=== PATIENT | female | born 1970 | race Caucasian/White ===

== ENCOUNTER 2021-08-22 10:31 | Emergency (ER) | payer OTHER, SELFPAY ==
[2021-08-22 10:42] VITALS: BP 198/97; PULSE 81; RESP 18; TEMP 36.7; O2SAT 97; BMI 42.0
--- NOTE | 2021-08-22 17:16 | ED_ITS ---
HPI - Ear Problem General Chief complaint: Ear Problems Stated complaint: r ear pain and swelling Time Seen by Provider: 08/22/21 11:54 Source: patient Mode of arrival: ambulatory Limitations: no limitations History of Present Illness HPI Narrative: 51-year-old female presents with right ear pain for the last 2 days. No fevers, no sore throat, no loss in hearing, no swimming, no other upper respiratory symptoms. MD Complaint: ear pain Location: right ear Duration: constant Severity: moderate Relieving factors: nothing Exacerbating factors: nothing Discharge from ear: no Treatment prior to arrival: none Related Data Previous Rx's Medication Instructions Recorded amoxicillin 875 mg-potassium 1 tab PO BID 10 Days #20 tab 08/22/21 clavulanate 125 mg tablet ofloxacin 0.3 % ear drops 10 drp OTIC (EARS) DAILY 7 Days 08/22/21 #70 ml Allergies Allergy/AdvReac Type Severity Reaction Status Date / Time No Known Allergies Allergy Mild N/A Verified 02/29/20 07:23 Review of Systems Constitutional: Constitutional: Denies body ache(s), Denies chills, Denies fatigue, Denies fever(s), Denies headache(s), Denies malaise and Denies weakness Eyes: Eyes: Denies diplopia ENT: Denies vertigo, Denies dizziness, Reports otalgia, Denies headache(s), Denies mouth pain, Denies post nasal drip, Denies sinus pain, Denies sinus pressure, Denies sore throat and Denies throat swelling Cardiovascular: Cardiovascular: Denies chest pain, Denies syncope, Denies leg edema, Denies lightheadedness, Denies Loss of Consciousness, Denies palpitations and Denies dyspnea Respiratory: Respiratory: Denies chest congestion, Denies cough and Denies dyspnea Gastrointestinal: Gastrointestinal: Denies abdominal pain, Denies hematochezia, Denies constipation, Denies diarrhea and Denies vomiting Musculoskeletal: Musculoskeletal: Reports no additional musculoskeletal complaints Neurologic: Denies confusion, Denies vertigo, Denies dizziness, Denies syncope, Denies headache(s) and Denies weakness Psychiatric: Psychiatric: Denies anxiety, Denies confusion and Denies depression Endocrine: Endocrine: Denies fatigue and Denies palpitations Allergic/Immunologic: Allergic/Immunologic: Denies throat swelling PMFSH Past Medical History Surgical History History of cholecystectomy History of removal of cyst History of tubal ligation Family History Family History (Updated 02/29/20 @ 07:27 by BARTOLOME Garrett) Father Emphysema lung Diabetes Myocardial infarction Mother Hypertension TIA (transient ischemic attack) Maternal Uncle Colon cancer Bladder cancer Sister Medley syndrome Endometriosis Abdominal malignancy Brother Leukemia Social History Social History Advance Directives: Yes Advance Directives Information Provided: Yes Advance Directives on File: No Patient : No Physical Exam Vital Signs: Vital Signs: Last Vital Signs Temp 98.1 F 08/22/21 10:42 Pulse 81 08/22/21 10:42 Resp 18 08/22/21 10:42 BP 198/97 H 08/22/21 10:42 Pulse Ox 97 08/22/21 10:42 BMI result Body Mass Index 42.0 Const: General: No confusion Nutritional Appearance: well nourished Orientation/consciousness: No confusion Limitations: no limitations HEENT: Head: Yes normal to inspection, Yes normocephalic and Yes atraumatic Ears: hearing grossly normal bilaterally, external ears normal, Abnormal EAC present erythema on the right and EAC tenderness on the right and TM abnormal bulging on the right, erythematous on the right and with loss of landmarks on the right General nose exam: Normal external nose present Face and sinus: Yes normal facial exam and Yes sinuses nontender Mouth: Normal oral and palatal mucosa present Throat: Yes posterior oropharynx normal Eyes: Conjunctivae: conjunctivae normal Pupils: Equal, round and reactive pupils present EOM: EOMs intact bilaterally Neck: Neck: Yes full ROM, Yes no lymphadenopathy and Yes supple Resp: Effort & Inspection: normal respiratory effort and able to speak in complete sentences Auscultation: clear to auscultation bilaterally, no crackles, no rales, no rhonchi and no wheezes Cardio: Rate: regular rate Rhythm: regular rhythm Heart sounds: S1 sophia l heart sound present and S2 normal heart sound present Skin: General skin exam: no rashes or lesions noted Neuro: General: No confusion Cranial nerves: Yes Equal, round and reactive pupils present Extrem: General: Yes normal to inspection and Yes full ROM Psych: Appearance: grossly normal Affect: normal affect Attitude: cooperative Thought process: Normal thought process present Course Course Course Narrative: 51-year-old female with 2 days of right ear pain. On exam, patient is stable vitals, has an erythematous X dura no auditory canal on the right side that is painful, has a right bulging and erythematous tympanic membrane Will treat with Augmentin and ofloxacin drops, counseled ibuprofen for pain, follow-up if worsening symptoms. All the patient's questions were answered. Discharge Plan Discharge Clinical Impression: Otitis media Patient Disposition: Home, Self-Care Instructions: Ear Infection (ED) Additional Instructions: Please use ear drops and oral antibiotics as prescribed. If you have fevers, worsening pain, trouble hearing, few cannot open your mouth, or if you have any other new or concerning symptoms, please return to emergency room Prescriptions: New amoxicillin-pot clavulanate 875-125 mg tablet 1 tab PO BID 10 Days Qty: 20 0RF ofloxacin 0.3 % drops 10 drp otic (ears) DAILY 7 Days Qty: 70 0RF Interventions: ED Discharge Assessment Last Done: 08/22/21 12:09 Discharge Date/Time: 08/22/21 12:10
== END 2021-08-22 12:10 | disposition home or self-care (01) ==
PROVIDERS: Emergency Provider Emergency Medicine; PCP Internal Medicine
DX: H66.91 Otitis media, unspecified, right ear (principal)
CPT/HCPCS: 99282; 99283

== ENCOUNTER 2022-12-26 07:47 | Emergency (ER) | payer OTHER, SELFPAY ==
--- NOTE | ~2022-12-26 | XR_ITS ---
EXAMINATION: XR HIP, RIGHT CLINICAL INFORMATION: Pain COMPARISON: None available. TECHNIQUE: Two views of the right hip. FINDINGS: No acute visible fracture or dislocation. Mild degenerative changes of the bilateral femoral acetabular joint. Subchondral cystic focus involving the right femoral head/neck nonspecific though may reflect arthritic etiology. Enthesopathy along the left greater trochanter. Degenerative changes of the lumbosacral spine. Bowel gas is unremarkable. Pelvic phleboliths are noted. XR/XR hip RT w PEL1V IMPRESSION: 1. No acute visible fracture or dislocation. 2. Mild degenerative changes of the bilateral femoral acetabular joint. 3. Subchondral cystic focus involving the right femoral head/neck nonspecific though may reflect arthritic etiology. 4. Enthesopathy along the left greater trochanter.
[2022-12-26 07:52] VITALS: BP 161/92; PULSE 87; RESP 18; TEMP 36.7; BMI 42.1
--- NOTE | 2022-12-26 08:12 | PC.NURSE ---
Patient reports she thinks she has a uti, denies pain with urination or blood in urine. States has sensation of having to void but is unable to. Reports 8/10 right thigh pain that started x1 month ago. Denies sob, chest pain, or headache.
--- NOTE | 2022-12-26 08:43 | ED.FEMALEGU ---
HPI - Female Genitourinary General Chief complaint: General Medical Stated complaint: R upper thigh pain Time Seen by Provider: 12/26/22 08:23 Source: patient Mode of arrival: ambulatory Limitations: no limitations History of Present Illness HPI Narrative: 52 yo female with hx of HTN, HLD here with c/o R thigh pain x 1 month no associated systemic symptoms hurts to get up and walk in AM and go up stairs. She has not seen her doctor for this. She also c/o dysuria and pain x 3 days but no fevers, vomiting. No hx of renal colic in the past. MD elicited complaint: dysuria and UTI Onset (ago): day(s) (2) Location of symptoms: suprapubic Severity: mild Female Urogenital Radiation: Non-Radiating Quality of pain: burning Consistency: intermittent Vaginal discharge: none Vaginal bleeding: none Urinary symptoms: Dysuria, Urgency and Frequency Exacerbating factors: urination Relieving factors: none Associated symptoms: denies other symptoms Treatment prior to arrival: none Related Data Previous Rx's Medication Instructions Recorded azithromycin 250 mg tablet See Rx Instructions PO .COMPLEX #6 04/29/22 tabs nitrofurantoin 100 mg PO BID 7 days #13 caps 12/26/22 monohydrate/macrocrystals 100 mg capsule (Macrobid) Allergies Allergy/AdvReac Type Severity Reaction Status Date / Time No Known Allergies Allergy Mild N/A Verified 04/29/22 16:30 Review of Systems Review of Systems: Constitutional : No Weight loss, No Fever, No Chills, ENT/Mouth : No Hearing loss, No Ear Pain, No Nasal Congestion, No Sinus Pain, No Hoarseness, No sore throat, No Rhinorrhea, No Swallowing Difficulty Cardiovascular : No Chest Pain, No SOB Respiratory : No Cough, No Dyspnea Gastrointestinal : No Nausea, No Vomiting, No Diarrhea, No abdominal Pain, No Hematochezia, No Melena Genitourinary : pos Dysuria, pos Urinary Frequency, No Hematuria, No Urinary Incontinence, Musculoskeletal : no back pain, pos hip pain Skin : No Skin Lesions, No rash Neuro : No Weakness, No Numbness, No Paresthesias, no loss of bowel or bladder incontinence, no saddle anesthesia PMFSH Past Medical History Attestation statement: The following information was validated with the patient. Source: old records reviewed Medical History ASCUS with positive high risk HPV cervical Benign essential hypertension Hidradenitis Mixed hyperlipidemia Obesity (BMI 30-39.9) Surgical History History of cholecystectomy History of removal of cyst (~2014) History of tubal ligation (~1994) Family History Family History Father Emphysema lung Diabetes Myocardial infarction Mother Hypertension TIA (transient ischemic attack) Maternal Uncle Colon cancer Bladder cancer Sister Medley syndrome Endometriosis Abdominal malignancy Brother Leukemia Social History Social History Housing: Apartment Alcohol intake: never Patient Tobacco Use Status: Current everyday Tobacco user Cigarette Packs Per Day: 1 Smoked in Last 30 Days: Yes Second Hand Smoke Exposure: Yes Use of substances other than those prescribed or required for medical reasons: No Advance Directives: No Advance Directives Information Provided: Yes service: No Current occupational status: employed Cognitive needs: No Hearing needs: No Vision needs: No Physical Exam Vital Signs: Vital Signs: Last Vital Signs Temp 98.1 F 12/26/22 07:52 Pulse 87 12/26/22 07:52 Resp 18 12/26/22 07:52 BP 161/92 H 12/26/22 07:52 O2 Del Method Room Air 12/26/22 07:52 BMI result Body Mass Index 42.1 Appearance: Alert. Oriented X3. No acute distress. Eyes: Pupils equal, round and reactive to light. ENT: Pharynx normal. Neck: Normal inspection. Neck supple. CVS: Normal heart rate and rhythm. Pulses normal. Respiratory: No respiratory distress. Breath sounds normal. Abdomen: Soft and nontender. Skin: Skin warm and dry. Normal skin color. Normal skin turgor. Extremities: No lower extremity edema. R upper thigh mild ttp near hip insertion of quads laterally no mass felt - distal NV intact Neuro: Oriented X 3. No motor deficit. No sensory deficit. Medications Administered Discontinued Medications Generic Name Dose Route Start Last Admin Trade Name Freq PRN Reason Stop Dose Admin Nitrofurantoin Macrocrystals 100 mg 12/26/22 09:02 12/26/22 09:08 Nitrofurantoin Monohyd/M-Cryst 100 Mg Capsule PO 12/26/22 09:03 100 mg ONCE ONE Administration Medical Decision Making Medical Decision Making [facility] Narrative: 52 yo female with hx of HTN, HLD here with c/o dysuria and UTI symptoms without concern for STI fevers vomiting or flank pain to suggest stone doubt renal colic or pyelonephritis. at this time will need UA. She also c/o chronic R hip pain without numbness, weakness has normal pulses and no red flag symptoms - possible strain vs arthritis will obtain xray and refer to orthopedics Differential Diagnosis Differential Diagnoses: The differential diagnosis associated with the presentation includes UTI, strain, sprain, arthritis Admission/Observation Consideration of admission/observation: Escalation of care including admission/observation considered not toxic tolerating PO can be managed as outpatient Lab Data [facility] Lab Attestation statement: I reviewed the patient's lab results. Labs: Lab Results 12/26/22 Range/Units 08:45 Urine Color Yellow Urine Appearance Clear Urine pH 6.0 (5.0-9.0) Ur Specific [place] 1.020 (1.005-1.025) Urine Protein Negative (Neg-Trace) mg/dL Urine Glucose (UA) Negative (Negative) mg/dL Urine Ketones Negative (Negative) mg/dL Urine Blood Small (1+) H (Negative) Urine Nitrite Negative (Negative) Ur Leukocyte Esterase Moderate (2+) H (Negative) Urine RBC 6-10 H (0-2) /HPF Urine WBC >50 H (0-5) /HPF Ur Squamous Epith Cells 3-5 (0-2) /HPF Urine Bacteria 3+ (None Seen) Hyaline Casts 0-2 (0-2) /LPF Independent Interpretation I performed an independent interpretation of an: Plain X-Ray (no fracture) Radiology Impression Discussion of test interpretation with radiology: I have reviewed the radiologist's reading. External Record Review External record reviewed: Office record Prescription Management I considered prescription management with: Antibiotic Discharge Plan Discharge Clinical Impression: Acute UTI Acute hip pain Qualifiers: Laterality: right Qualified Code(s): M25.551 - Pain in right hip Patient Disposition: Home, Self-Care Instructions: Urinary Tract Infection in Women (ED), Arthralgia (ED) Additional Instructions: return for worsening pain, vomiting, fevers or no improvement. for hip please talk to your primary care doctor you may need physical therapy or referral to orthopedics. can take tylenol or motrin as needed for pain FINDINGS: No acute visible fracture or dislocation. Mild degenerative changes of the bilateral femoral acetabular joint. Subchondral cystic focus involving the right femoral head/neck nonspecific though may reflect arthritic etiology. Enthesopathy along the left greater trochanter. Degenerative changes of the lumbosacral spine. Bowel gas is unremarkable. Pelvic phleboliths are noted. XR/XR hip RT w PEL1V IMPRESSION: 1.? No acute visible fracture or dislocation. 2.? Mild degenerative changes of the bilateral femoral acetabular joint. 3.? Subchondral cystic focus involving the right femoral head/neck nonspecific though may reflect arthritic etiology. 4.? Enthesopathy along the left greater trochanter. Prescriptions: New nitrofurantoin monohyd/m-cryst [Macrobid] 100 mg capsule 100 mg PO BID 7 Days Qty: 13 0RF Rx Instructions: must administer with a meal/food No Action azithromycin 250 mg tablet See Rx Instructions PO .COMPLEX Qty: 6 0RF Rx Instructions: take 500 mg today (day 1), then 250 mg for 4 days (days 2-5) PO Referrals: Brittaney Gomez PA-C [[facility]] - (orthopedics can call for appointment )
[2022-12-26 08:51] LABS: Appearance Urine Clear; Color Urine Yellow; Glucose Urine UA Negative (Negative); Leukocyte Esterase Urine Moderate (2+) (Negative); Nitrite Urine Negative (Negative); UMIC TRIGGER UACC YES; Urine Blood Small (1+) (Negative); Urine Ketones Negative (Negative); Urine Protein Negative (Neg-Trace)
[2022-12-26 08:54] LABS: Bacteria Urine 3+ (None Seen); Hyaline Casts Urine 0-2 /LPF (0-2); UACC Culture Trigger YES; WBC Urine >50 /HPF (0-5)
[2022-12-26] MEDS: Nitrofurantoin Monohyd/M-Cryst 100 MG CAPSULE PO (09:08)
--- NOTE | 2022-12-26 09:23 | PC.NURSE ---
Discharge plan reviewed with patient who verbalized understanding
== END 2022-12-26 09:27 | disposition home or self-care (01) ==
PROVIDERS: Emergency Provider Emergency Medicine; PCP Internal Medicine
DX: N39.0 Urinary tract infection, site not specified (principal); M25.551 Pain in right hip; R30.0 Dysuria; R35.0 Frequency of micturition; F17.210 Nicotine dependence, cigarettes, uncomplicated; Z71.6 Tobacco abuse counseling; Z79.899 Other long term (current) drug therapy
CPT/HCPCS: 73502; 81001; 87086; 99283; 99284

== ENCOUNTER 2023-02-18 09:30 | Outpatient (REF) | payer OTHER, SELFPAY ==
[2023-02-18 10:01] LABS: MANUAL DIFF FLAG NO
[2023-02-18 10:16] LABS: Basophils Percent Auto 0.5 % (0-2); Eosinophils Absolute Auto 0.2 X10*3/uL (0.0-0.4); Eosinophils Percent Auto 2.1 % (0-4); Hematocrit 42.9 % (37.0-47.0); Hemoglobin 13.9 g/dl (12.0-16.0); Imm Gran Abs Auto 0.06 X10*3/uL (0.00-0.03); Imm Gran Pct Auto 0.7 % (0.0-0.4); Lymphocytes Absolute Auto 2.3 X10*3/uL (1.2-4.9); Lymphocytes Percent Auto 27.2 % (20-40); Mean Corpuscular HGB Conc 32.4 g/dl (31.0-35.0); Mean Corpuscular Hemoglobin 28.4 pg (27.0-33.0); Mean Corpuscular Volume 87.7 fL (80.0-98.0); Mean Platelet Volume 9.6 fL (9.4-12.3); Monocytes Absolute Auto 0.6 X10*3/uL (0.1-1.2); Monocytes Percent Auto 7.2 % (2-11); Neutrophils Absolute Auto 5.3 x10*3/uL (2.0-8.3); Neutrophils Percent Auto 62.3 % (45-73); Platelet Count 323 X10*3/uL (160-400); Red Blood Count 4.89 X10*6/uL (4.20-5.50); Red Cell Distribution Width 13.2 % (11.0-16.0); White Blood Count 8.5 X10*3/uL (4.8-10.8)
[2023-02-18 10:56] LABS: Alanine Aminotransferase 14 U/L (0-31); Alkaline Phosphatase 74 U/L (39-117); Anion Gap 13 (12-20); Aspartate Amino Transferase 17 U/L (5-31); Bilirubin Total 0.3 mg/dL (0.0-1.0); Blood Urea Nitrogen 13 mg/dL (9-16); Calcium 9.8 mg/dL (8.4-10.2); Carbon Dioxide 26 mmol/L (22-29); Chloride 103 mmol/L (96-108); Cholesterol 314 mg/dL (<200); Estimated Glomerular Filt Rate > 60; Glucose Fasting 98 mg/dL (60-99); HDL Cholesterol 41 mg/dL (>40); LDL Cholesterol Calculated 201 mg/dL (<100); Potassium 4.2 mmol/L (3.3-5.1); Sodium 138 mmol/L (135-145); Total Protein 7.9 g/dL (6.5-8.0); Triglycerides 361 mg/dL (<150)
[2023-02-18 11:13] LABS: TSH reflex Free T4 4.29 uIU/mL (0.32-4.0)
[2023-02-18 11:15] LABS: Appearance Urine Cloudy; Color Urine Yellow; Glucose Urine UA Negative (Negative); Leukocyte Esterase Urine Trace (Negative); Nitrite Urine Negative (Negative); PH 5.5 (5.0-9.0); UMIC TRIGGER UACC YES; Urine Blood Small (1+) (Negative); Urine Ketones Negative (Negative); Urine Protein Negative (Neg-Trace)
[2023-02-18 11:17] LABS: Bacteria Urine Trace (None Seen); WBC Urine 0-5 /HPF (0-5)
[2023-02-18 11:48] LABS: Free T4 (Free Thyroxine) 0.85 ng/dL (0.71-1.85)
== END 2023-02-18 09:31 | disposition home or self-care (01) ==
LOC: HO.LAB 09:30
PROVIDERS: PCP Internal Medicine; Visit Provider Internal Medicine
DX: E55.9 Vitamin D deficiency, unspecified (principal); R53.83 Other fatigue; E78.00 Pure hypercholesterolemia, unspecified; R30.0 Dysuria
CPT/HCPCS: 36415; 80053; 80061; 81001; 81003; 82306; 84439; 84443; 85025

== ENCOUNTER 2023-02-20 16:52 | Outpatient (AMB) | payer OTHER, SELFPAY ==
[2023-02-20 17:05] VITALS: BP 124/80; PULSE 85; RESP 17; O2SAT 97; BMI 39.4
--- NOTE | 2023-02-20 17:05 | A.OFFPC_ITS ---
Vital Signs 02/20/23 17:05 Height 5 ft 2 in Weight 215 lb 4 oz BMI 39.4 BP 124/80 Blood Pressure Location Lt brachial Position Sitting Respiration 17 Pulse 85 Pulse Source Pulse Oximeter Pulse Oximetry (%) 97 Oxygen Delivery Method Room Air Intake Visit Reasons: PE-NEEDS PHQ9/THRIVE Intake Note: Patient is here today for a physical. Pt has a rash for more than 4 days under breast. 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 Required: No Accompanied by: Self / Same As Patient Allergies No Known Allergies Allergy (Mild, Verified 02/20/23 17:34) N/A Medication List - Last Reconciled 02/20/23 by Joe Small MD No Known Home Meds Tobacco use date assessed: 02/20/23 Dental Screening Dental Screen Date: 02/20/23 Did you have a dental visit in the last 12 months?: Yes Did you have a dental problem in the last 6 months where you did not have access to dental care?: No Was dental information given to patient?: Patient has dentist HPI PE-NEEDS PHQ9/THRIVE HPI Details Patient comes in today for her annual physical examination States that she's had a recurrent itchy rash under both of her breasts for the past 1 to 2 months now States that she feels okay otherwise Was able to lose about 15 pounds in just under 2 months - states that she has been trying to change her diet for the better and has recently given up all sodas and sweet drinks She denies any headaches or dizziness Denies any chest pains, no SOB No nausea/vomiting, no abdominal pain No change in bowel habits noted Denies any acute urinary symptoms Had her follow up labs done a couple of days ago - would like to go over her results and she how she is doing with her cholesterol and her blood sugar She has not had her mammogram done since 2018 and would like to get an order to get this done BATOOL Has also not had her pap smear and 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 Gutierres for this She has never had a screening colonoscopy done in the past Would like to get her flu shot today PFSH Medical History (Updated 02/20/23 @ 20:04 by Joe Small MD) Vitamin D deficiency ASCUS with positive high risk HPV cervical Benign essential hypertension Hidradenitis Mixed hyperlipidemia Obesity (BMI 30-39.9) Surgical History History of removal of cyst (~2014) History of cholecystectomy History of tubal ligation (~1994) Family History Father Emphysema lung Diabetes Myocardial infarction Mother Hypertension TIA (transient ischemic attack) Maternal Uncle Colon cancer Bladder cancer Sister Medley syndrome Endometriosis Abdominal malignancy Brother Leukemia Social History Housing: Apartment Alcohol intake: never Patient Tobacco Use Status: Current everyday Tobacco user Cigarette Packs Per Day: 1 Cigarettes Per Day: 20 e-Cigarette/Vaping Use: Never Used Second Hand Smoke Exposure: Yes service: No Current occupational status: employed Cognitive needs: No Hearing needs: No Vision needs: No Questionnaire PHQ-9 Over the last 2 weeks, how often have you been bothered by any of the following problems? 1. Little interest or pleasure in doing things: not at all 2. Feeling down, depressed, or hopeless: not at all 3. Trouble falling or staying asleep, or sleeping too much: not at all 4. Feeling tired or having little energy: not at all 5. Poor appetite or overeating: not at all 6. Feeling bad about yourself - or that you are a failure or have let yourself or your family down: not at all 7. Trouble concentrating on things, such as reading the newspaper or watching television: not at all 8. Moving or speaking so slowly that other people could have noticed. Or the opposite - being so fidgety or restless that you have been moving around a lot more than usual: not at all 9. Thoughts that you would be better off or of hurting yourself in some way: not at all Total score: 0 Depression Screening Interpretation: Negative Depression Screening Done: Yes 57447 - PHQ-9 Billing: Yes Source: Developed by Drs. Eldon Harper, Vanna Ríos, Mikey Anderson and colleagues, with an educational pete from [employer]. Thrive Questionnaire Date Thrive assessed: 02/20/23 I am a: Patient What is your living situation today?: I have a steady place to live Within the past 12 months, did the food you bought not last and you didn't have the money to get more?: Never true Within the past 12 months, did you worry whether your food would run out before you got money to buy more?: Never true Do you have trouble paying your heating and electricity bill?: No Do you have trouble taking care of your child, family member or friend?: No Do you have trouble with day-to-day activities such as bathing, preparing meals, shopping, managing finances, etc.?: No Are you currently unemployed and looking for a job?: No Are you interested in more education?: No Please select the resources that you would like help with: None Currently or been in a relationship where the following occur: no concerns reported AUDIT C Alcohol Use Questionnaire (AUDIT-C) 1. How often do you have a drink containing alcohol?: Monthly or less 2. How many drinks containing alcohol do you have on a typical day when you are drinking?: 1 or 2 3. How often do you have six or more drinks on one occasion?: Never Total Score: 1 Score Reviewed/Action Taken: Yes FABIO-7 AMB Questionnaire FABIO-7 Date FABIO - 7 assessed: 02/20/23 Feeling nervous, anxious, or on edge: 0 = Not at all Not being able to stop or control worryin = Not at all Worrying too much about different things: 0 = Not at all Trouble relaxin = Not at all Being so restless that it is hard to sit still: 0 = Not at all Becoming easily annoyed or irritable: 0 = Not at all Feeling afraid as if something awful might happen: 0 = Not at all Total FABIO-7 score (0-4 normal; 5-9 mild; 10-14 moderate; 15-21 severe): 0 Source: Developed by Drs. Eldon Harper, Vanna Ríos, Mikey Anderson and colleagues, with an educational pete from [employer]. FABIO-7 Assessment Billing FABIO-7 Assessment Tool: FABIO-7 Assessment 37933 Review of Systems Const Denies chills, Denies fatigue, Denies fever(s), Denies headache(s) and Denies malaise Eyes Denies blurry vision, Denies change in vision, Denies irritation and Denies itchy eyes ENT Denies dysphagia, Denies dizziness, Denies otalgia, Denies headache(s), Denies nasal congestion, Denies neck pain, Denies odynophagia, Denies sinus pain and Denies sore throat Card Denies chest pain, Denies rapid heart rate, Denies irregular heart rhythm, Denies palpitations and Denies dyspnea Resp Denies chest congestion, Denies cough, Denies dyspnea and Denies wheezing GI Denies abdominal pain, Denies bloating, Denies constipation, Denies dysphagia, Denies heartburn, Denies diarrhea, Denies nausea, Denies odynophagia and Denies vomiting Denies hematuria, Denies urinary frequency, Denies dysuria, Denies urinary incontinence and Denies urinary urgency Musc Denies back pain, Denies arthralgias, Denies joint swelling, Denies muscle weakness and Denies neck pain Skin/Breast Denies breast pain, Denies breast mass, Denies change in pigmentation, Denies lesions, Reports rash (recurrent itchy rash under both breasts) and Denies unusual bruising Neuro Denies dizziness, Denies headache(s) and Denies paresthesias Psych Denies anxiety and Denies depression Endo Denies fatigue and Denies palpitations Darrin/Lymph Denies easy bruising Aller/Immun Denies itchy eyes and Denies wheezing Physical exam (Primary Care) Vital Signs: Last Vital Signs Pulse 85 02/20/23 17:05 Resp 17 02/20/23 17:05 BP 124/80 02/20/23 17:05 Pulse Ox 97 02/20/23 17:05 Oxygen Delivery Method Room Air 02/20/23 17:05 BMI result Body Mass Index 39.4 Tobacco/Smoking Status: Tobacco use Status Tobacco use date assessed 02/20/23 02/20/23 17:21 Patient Tobacco Use Status Current everyday Tobacco 02/20/23 17:07 e-Cigarette/Vaping Use Never Used 02/20/23 17:21 PHQ-9: PHQ-9 Score PHQ-9: Total score 0 02/20/23 17:43 Depression Screening Interpretation: Negative Thrive Assessment: Date of Thrive Assessment Date Thrive assessed 02/20/23 02/20/23 17:10 Currently or been in a relationship where the following occur: no concerns reported Const General: no acute distress, alert and awake Orientation/consciousness: patient oriented x3 [facility] Head: Yes normocephalic and Yes atraumatic Ears: external ears normal, TM's normal bilaterally and EAC's normal General nose exam: No nasal discharge present Face and sinus: Yes normal facial exam and Yes sinuses nontender Teeth and gingiva: dentition normal Throat: Yes posterior oropharynx normal and Yes tonsils normal (no TP congestion) Eyes Eyelids: Yes eyelids normal Conjunctivae: conjunctivae normal Pupils: Equal, round and reactive pupils present EOM: EOMs intact bilaterally Neck Neck: Yes no lymphadenopathy and Yes supple Thyroid: Thyroid normal Resp Auscultation: clear to auscultation bilaterally, no rales and no wheezes Cardio Rate: regular rate Rhythm: regular rhythm Heart sounds: no murmurs GI Palpation (GI): Soft to palpation, nontender and No hepatosplenomegaly present Auscultation: normal bowel sounds General: Yes no CVA tenderness Back/Spine/Pelvis Back: no CVA tenderness Thoracic/Lumbar Spine: thoracic and lumbar spine normal to inspection Skin Other: (+) large patch of erythematous papular rash over the skin folds under both breasts Neuro General: patient oriented x3, moves all extremities, no focal motor deficits and CN's II-XI intact bilaterally Cranial nerves: Yes Equal, round and reactive pupils present Cognition (Neuro): normal cognition Gait exam (Neuro): Normal gait present Extrem General: Yes no clubbing, cyanosis or edema Office Procedures Flu Questionnaire Does the patient have a severe egg allergy?: No Does the patient have severe life threatening allergies?: No Does the patient have a fever or illness today?: No Has the patient ever had Guillain-[place] Syndrome?: No Has the patient ever had any past reaction to a flu shot?: No Immunizations flu vacc [id number] 6mos up(PF) 60 mcg(15 mcgx4)/0.5 mL IM syringe Performing Provider: Joe Small MD [facility] Administered by: JESSY Turner on 02/20/23 17:21 Dose Route Admin Location Dispensed Lot Number Expiration Date [employer] 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/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 0.5 mL IM Right Deltoid 0.5 mL [id number] 10/25/23 17349-771-36 [employer] VIS Given Date VIS Provided VIS Publication Date 02/20/23 Single Vaccine 20 Eligibility Eligibility Date Funding Source Not VF Eligible 02/20/23 Private Results Reviewed Results Reviewed: Laboratory Tests 02/18/23 02/18/23 02/18/23 09:59 09:59 09:59 WBC 8.5 Hgb 13.9 Hct 42.9 Plt Count 323 Sodium 138 Potassium 4.2 Creatinine 0.79 Estimated GFR > 60 Fasting Glucose 98 Calcium 9.8 AST 17 ALT 14 Triglycerides 361 H Cholesterol 314 H LDL Cholesterol, Calc 201 H HDL Cholesterol 41 25-OH Vitamin D Total 16.0 L TSH 4.29 H Free T4 0.85 Ur Specific [place] Urine Protein Urine Glucose (UA) Urine Blood 02/18/23 02/18/23 10:08 10:08 WBC Hgb Hct Plt Count Sodium Potassium Creatinine Estimated GFR Fasting Glucose Calcium AST ALT Triglycerides Cholesterol LDL Cholesterol, Calc HDL Cholesterol 25-OH Vitamin D Total TSH Free T4 Ur Specific [place] 1.020 Urine Protein Negative Urine Glucose (UA) Negative Urine Blood Small (1+) H Assessment and Plan Assessment & Plan (1) Annual physical exam: Code(s): Z00.00 - Encounter for general adult medical examination without abnormal findings Plan: Results of her labs done a couple of days ago reviewed and discussed with patient She is overdue on all of her cancer screenings and these will all be updated today - these were all ordered last year but she was not able to get any of them done (2) Benign essential hypertension: Code(s): I10 - Essential (primary) hypertension Plan: Reinforced low sodium diet Used to take Lisinopril 10 mg QD for high blood pressure but stopped taking this a couple of years ago Her BP appears to have improved a lot from before, aided perhaps in part, due to her weight loss Have cautioned her that her BP was very high at 161/92 less than 2 months ago on 12/26/2022 when she was still weighing at 230 pounds - she has since lost about 15 pounds and her BP today is much improved at 124/80 Have advised patient again to check her blood pressure every now and then to make sure it is staying controlled/normal (3) Mixed hyperlipidemia: Code(s): E78.2 - Mixed hyperlipidemia Plan: Advised that her cholesterol levels are again very high on her recent labs, with her LDL cholesterol at 201 mg/dl and total cholesterol at 314 mg/dl - these were last at 147 mg/dl and 258 mg/dl when they were previously checked back in 2017 Recalls that she was on some cholesterol Rx then, most likely Pravastatin 40 mg QD Reinforced low cholesterol diet Patient also used to take Atorvastatin 20 mg QD but she stopped taking this on her own a few years ago Recommend she start back on some Rx for her high cholesterol levels - agree to start back on Pravastatin 40 mg QD for now - Rx sent Will recheck her labs and fasting lipids in 6 months for follow up (4) Vitamin D deficiency: Code(s): E55.9 - Vitamin D deficiency, unspecified Plan: She is advised that her Vitamin D level is very low on her recent labs and she should start taking supplements for this Will start her on Vitamin D3 2000 units QD Will recheck her Vitamin D level in 6 months for follow up (5) Elevated TSH: Code(s): R79.89 - Other specified abnormal findings of blood chemistry Plan: Patient's TSH is slightly elevated on her recent labs; her free T4 is normal and she appears clinically euthyroid Will recheck her TFTs in 6 months for follow up (6) Candidal intertrigo: Code(s): B37.2 - Candidiasis of skin and nail Plan: Will start her on Nystatin powder [id number] units/gm apply to rash under both breasts BID until they clear up completely (7) Menopausal symptoms: Code(s): N95.1 - Menopausal and female climacteric states Plan: Advised that there is no effective Tx for her symptoms but if they continue to get worse, can try her on SSRIs Patient would like to continue observing for now as she prefers to avoid taking any Rx if she can avoid them - states that her menopausal symptoms are actually more tolerable lately and are not as pronounced as they were last year (8) Insomnia: Code(s): G47.00 - Insomnia, unspecified Qualifiers: Insomnia type: unspecified Qualified Code(s): G47.00 - Insomnia, unspecified Plan: Mainly due to her hot flashes Sleep hygiene reinforced Advised again that she can try some OTC Melatonin PRN if she wants to - reassured that these are more natural and are not habit-forming (9) Smoker: Code(s): F17.200 - Nicotine dependence, unspecified, uncomplicated Plan: Counseled again on smoking cessation (10) Obesity (BMI 30-39.9): Code(s): E66.9 - Obesity, unspecified Plan: Reinforced diet/exercise as tolerated/lose weight - she has managed to lose about 15 pounds recently in just under 2 months (11) Colon cancer screening: Code(s): Z12.11 - Encounter for screening for malignant neoplasm of colon Plan: Will refer her again to GI for screening colonoscopy (12) Breast cancer screening: Code(s): Z12.39 - Encounter for other screening for malignant neoplasm of breast Qualifiers: Breast cancer screening modality: mammogram Qualified Code(s): Z12.31 - Encounter for screening mammogram for malignant neoplasm of breast Plan: Will send her for annual screening mammogram; has not had a mammogram done since 2018 (13) Cervical cancer screening: Code(s): Z12.4 - Encounter for screening for malignant neoplasm of cervix Plan: Per request, will refer her back to OB-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 Panel Fast 6 Months E78.00 - Pure hypercholesterolemia, unspecified Lipid Panel 6 Months E78.00 - Pure hypercholesterolemia, unspecified Vitamin D 25-OH Total 6 Months E55.9 - Vitamin D deficiency, unspecified UA CC w/rflx Micro + Cult 6 Months R30.0 - Dysuria Influenza [id number] Immunization Today Z23 - Encounter for immunization MM tomosynthesis screening BI Today Z12.31 - Encounter for screening mammogram for malignant neoplasm of breast Complete Blood Count Auto Diff 6 Months I10 - Essential (primary) hypertension Thyroid Stimulating Hormone 6 Months R79.89 - Other specified abnormal findings of blood chemistry Free T4 (Free Thyroxine) 6 Months R79.89 - Other specified abnormal findings of blood chemistry Referrals Gastroenterology Referral Z12.11 - Encounter for screening for malignant neoplasm of colon MENTAL RETARDATION AIDE Referral Z12.4 - Encounter for screening for malignant neoplasm of cervix Medications: New cholecalciferol (vitamin D3) 50 mcg PO DAILY 90 caps 3RF 90 days E55.9 - Vitamin D deficiency, unspecified pravastatin 40 mg PO BEDTIME 90 tabs 1RF 90 days nystatin 1 appl topical TID 60 grams 3RF 10 days Coding Level of Care Code Est Pt Prev Care 40-64y(93644) Diagnoses Annual physical exam Z00.00 Benign essential hypertension I10 Mixed hyperlipidemia E78.2 Vitamin D deficiency E55.9 Elevated TSH R79.89 Candidal intertrigo B37.2 Menopausal symptoms N95.1 Insomnia, unspecified type G47.00 Insomnia type: unspecified Smoker F17.200 Obesity (BMI 30-39.9) E66.9 Colon cancer screening Z12.11 Encounter for screening mammogram for malignant neoplasm of breast Z12.31 Breast cancer screening modality: mammogram Cervical cancer screening Z12.4 Additional Codes FABIO-7 Assessment Billing - FABIO-7 Assessment Tool: FABIO-7 Assessment 15504 ([id number])
== END 2023-02-20 17:43 | disposition home or self-care (01) ==
PROVIDERS: Visit Provider Internal Medicine
DX: Z23 Encounter for immunization (principal)
CPT/HCPCS: 90471; 90686; 99396

== ENCOUNTER 2023-04-14 08:00 | Outpatient (REF) | payer SELFPAY ==
--- NOTE | ~2023-04-14 | MM_ITS ---
EXAMINATION: MM SCREENING DIGITAL BREAST TOMOSYNTHESIS, BILATERAL CLINICAL INFORMATION: Screening. Asymptomatic. COMPARISON: Mammography: This study is compared with prior exams dating back to 2017. TECHNIQUE: Digital breast tomosynthesis is performed in both the craniocaudal and mediolateral oblique views along with computer-aided detection (CAD). Synthesized 2D images are generated from the tomosynthesis. FINDINGS: The breasts are almost entirely fatty (ACR BI-RADS breast composition Category a). There are no significant masses, abnormal calcifications, or other abnormalities. MM/MM tomosynthesis screening BI IMPRESSION: No mammographic evidence of malignancy. ASSESSMENT: BI-RADS BI-RADS 1 - Negative RECOMMENDATION: Routine annual mammography screening. 1 year F/U This examination should not preclude the clinical evaluation of a suspicious palpable abnormality. This patient's information was entered into a reminder system with a target due date for their next mammogram.
== END 2023-04-14 08:01 | disposition home or self-care (01) ==
LOC: HO.MAMMO 08:00
PROVIDERS: PCP Internal Medicine; Visit Provider Internal Medicine
DX: Z12.31 Encounter for screening mammogram for malignant neoplasm of breast (principal)
CPT/HCPCS: 77063; 77067

== ENCOUNTER → 2023-04-14 08:15 | Outpatient (BNV) | payer OTHER, SELFPAY | PROVIDERS: PCP Internal Medicine; Visit Provider Radiology Diagnostic Radiology | DX: Z12.31 Encounter for screening mammogram for malignant neoplasm of breast (principal) | CPT/HCPCS: 77063; 77067 ==

== ENCOUNTER 2023-05-22 08:29 | Outpatient (REF) | payer OTHER, SELFPAY ==
[2023-05-22 09:15] LABS: Appearance Urine Cloudy; Color Urine Yellow; Glucose Urine UA Negative (Negative); Leukocyte Esterase Urine Negative (Negative); Nitrite Urine Negative (Negative); PH 5.5 (5.0-9.0); UMIC TRIGGER UACC YES; Urine Blood Small (1+) (Negative); Urine Ketones Negative (Negative); Urine Protein Negative (Neg-Trace)
[2023-05-22 09:25] LABS: Bacteria Urine 1+ (None Seen); Hyaline Casts Urine 0-2 /LPF (0-2); RBC Urine 0-2 /HPF (0-2); WBC Urine 0-5 /HPF (0-5)
== END 2023-05-22 08:30 | disposition home or self-care (01) ==
LOC: HO.LAB 08:29
PROVIDERS: PCP Internal Medicine; Visit Provider Internal Medicine
DX: R30.0 Dysuria (principal)
CPT/HCPCS: 81001

== ENCOUNTER 2023-06-10 09:53 | Emergency (ER) | payer OTHER, SELFPAY ==
--- NOTE | ~2023-06-10 | XR_ITS ---
EXAMINATION: XR CHEST CLINICAL INFORMATION: 53-year-old female with shortness of breath COMPARISON: 06/18/2015 TECHNIQUE: 2 views of the chest were obtained. FINDINGS: No significant abnormality is noted involving the heart, lungs, mediastinum, bony thorax or soft tissues. XR/XR chest 2V IMPRESSION: Unremarkable examination.
[2023-06-10 09:55] VITALS: BP 172/95; PULSE 98; RESP 18; TEMP 36.1; O2SAT 98; BMI 40.3
--- NOTE | 2023-06-10 10:29 | ED.GENADULT ---
HPI - General Adult General Chief complaint: Upper Respiratory Symptoms Stated complaint: Cough Diff Breathing Time Seen by Provider: 06/10/23 10:28 Source: patient Mode of arrival: ambulatory Limitations: no limitations History of Present Illness HPI narrative: Patient is a 53 year old assigned female at with a history of HTN and tobacco use presenting to the emergency department today with a cough and congestion. Patient states that over the last 3 days she has had a cough and congestion. Patient denies any dizziness, lightheadedness, abdominal pain, nausea, vomiting, fever, chills, blurry vision, double vision, loss of vision, chest pain, difficulty breathing, shortness of breath, back pain, night sweats, pain with urination, increased urinary frequency, increased urinary urgency, blood in her urine or stool, syncope or a near syncopal episode, recent trauma or falls, bowel incontinence, bladder incontinence, bowel retention, bladder retention, or any other complaints at this time. Onset (ago): day(s) (3) Severity: mild Severity scale (1-10): 2 Relieving factors: none Exacerbating factors: none Associated symptoms: cough Treatments prior to arrival: none Related Data Previous Rx's Medication Instructions Recorded cholecalciferol (vitamin D3) 50 50 mcg PO DAILY 90 days #90 caps 02/20/23 mcg (2,000 unit) capsule nystatin 100,000 unit/gram topical 1 appl topical TID 10 days #60 02/20/23 powder grams pravastatin 40 mg tablet 40 mg PO BEDTIME 90 days #90 tabs 02/20/23 prednisone 20 mg tablet 20 mg PO DAILY 7 days #7 tabs 06/10/23 Allergies Allergy/AdvReac Type Severity Reaction Status Date / Time No Known Allergies Allergy Mild N/A Verified 06/10/23 09:55 Review of Systems Constitutional: Constitutional: Reports no additional constitutional complaints, Denies chills, Denies fever(s) and Denies night sweats Eyes: Eyes: Reports no additional eye complaints, Denies blurry vision, Denies change in vision, Denies diplopia, Denies eye discharge, Denies loss of vision and Denies eye pain ENT: Denies dizziness and Reports nasal congestion Cardiovascular: Cardiovascular: Reports no additional cardiovascular complaints, Denies chest pain, Denies lightheadedness, Denies Loss of Consciousness and Denies dyspnea Respiratory: Respiratory: Reports no additional respiratory complaints, Reports cough and Denies dyspnea Gastrointestinal: Gastrointestinal: Reports no additional gastrointestinal complaints, Denies abdominal pain, Denies melena, Denies hematochezia, Denies change in bowel habits and Denies change in stool character Genitourinary: Genitourinary: Denies hematuria, Denies urinary frequency, Denies dysuria, Denies urinary incontinence, Denies urinary hesitancy and Denies urinary urgency Musculoskeletal: Musculoskeletal: Reports no additional musculoskeletal complaints, Denies numbness and Denies tingling Neurologic: Denies dizziness, Denies loss of vision, Denies numbness and Denies tingling Psychiatric: Psychiatric: Reports no additional psychiatric complaints Endocrine: Endocrine: Reports no additional endocrine complaints Hematologic/Lymphatic: Hematologic/Lymphatic: Reports no additional hematologic/lymphatic complaints Allergic/Immunologic: Allergic/Immunologic: Reports no additional allergic/immunologic complaints PMFSH Past Medical History Attestation statement: The following information was validated with the patient. Source: old records reviewed and nursing notes reviewed Medical History Cervical cancer screening Upper respiratory tract infection Breast cancer screening Colon cancer screening Obesity (BMI 30-39.9) Menopausal symptoms Annual physical exam Vitamin D deficiency ASCUS with positive high risk HPV cervical Benign essential hypertension Hidradenitis Mixed hyperlipidemia Surgical History History of removal of cyst (~2014) History of cholecystectomy History of tubal ligation (~1994) Family History Family History Father Emphysema lung Diabetes Myocardial infarction Mother Hypertension TIA (transient ischemic attack) Maternal Uncle Colon cancer Bladder cancer Sister Medley syndrome Endometriosis Abdominal malignancy Brother Leukemia Social History Social History Housing: Apartment Alcohol intake: never Patient Tobacco Use Status: Current everyday Tobacco user Cigarette Packs Per Day: 1 Cigarettes Per Day: 20 e-Cigarette/Vaping Use: Never Used Second Hand Smoke Exposure: Yes Advance Directives: No Advance Directives Information Provided: No service: No Current occupational status: employed Cognitive needs: No Hearing needs: No Vision needs: No Physical Exam ED Vital Signs: Vital Signs - 24 hr 06/10/23 09:55 Temperature 97 F Pulse Rate 98 Respiratory Rate 18 Blood Pressure 172/95 H Pulse Oximetry 98 Oxygen Delivery Method Room Air BMI result Body Mass Index 40.3 Const General: cooperative, no acute distress, alert and awake Nutritional Appearance: well nourished Orientation/consciousness: patient oriented x3 Limitations: no limitations HENMT Head: Yes normal to inspection and Yes atraumatic Ears: hearing grossly normal bilaterally and external ears normal General nose exam: Normal external nose present, no nasal discharge noted and no epistaxis Face and sinus: Yes normal facial exam, No abrasion and No laceration Mouth: Normal oral and palatal mucosa present, no drooling and no muffled voice Eyes General: appearance normal, both eyes and all related structures Periorbital: periorbital findings normal Eyelids: Yes eyelids normal Conjunctivae: conjunctivae normal Pupils: Equal, round and reactive pupils present EOM: EOMs intact bilaterally Neck Neck: Yes normal visual inspection, Yes full ROM and Yes no lymphadenopathy Chest Chest palpation & inspection: normal inspection of the chest Resp Effort & Inspection: normal respiratory effort and able to speak in complete sentences Auscultation: clear to auscultation bilaterally Cardio Rate: regular rate Rhythm: regular rhythm GI Inspection: Yes normal to inspection Neuro General: patient oriented x3 and moves all extremities Cranial nerves: Yes Equal, round and reactive pupils present Cognition (Neuro): normal cognition Motor exam (neuro): 5/5 motor strength present throughout Sensory Exam: Normal double simultaneous stimulation for sensation Coordination: [id number] test normal Extrem General: Yes normal to inspection, Yes full ROM and Yes capillary refill normal Psych Appearance: grossly normal Mental Status: mental status grossly normal Affect: normal affect Attitude: cooperative Thought process: Normal thought process present Thought content: Normal thought content present Insight: Good insight present (Psych) Procedures Smoking Cessation Time Spent Discussing Smoking Cessation w/Patient (min): 15 Patient Acknowledges Need for Cessation: Yes Medical Decision Making Medical Decision Making MDM Narrative: Patient is a 53 year old assigned female at with a history of HTN and tobacco use presenting to the emergency department today with nasal congestion and a cough. Patient's physical exam was unremarkable. Patient's COVID-19 and influenza tests were negative. Patient's chest x-ray showed no acute process. I explained my physical exam findings as well as all test results to the patient. I answered all questions asked by the patient. I spent >10 minutes counseling the patient on smoking cessation. I stressed the importance of the patient taking her medication as prescribed. I stressed the importance of the patient following up with her primary care provider. I stressed the importance of the patient returning to the emergency department immediately if her symptoms were to worsen or if she were to develop any dizziness, shortness of breath, difficulty breathing, chest pain, blurry vision, loss of vision, nausea, vomiting, abdominal pain, fever, chills, back pain, or any other complaints. Patient verbalized agreement and understanding with this treatment plan and discharge. Differential Diagnosis Differential Diagnoses: The differential diagnosis associated with the presentation includes Cough Influenza COVID-19 COPD Smoker Admission/Observation Consideration of admission/observation: Escalation of care including admission/observation considered Patient would have been admitted to the hospital had her work up had any findings where hospital admission was appropriate and her clinical presentation warranted hospital admission. Lab Data [facility] Lab Attestation statement: I reviewed the patient's lab results. My interpretation of these results are in the [facility] Rationale portion of this note. Labs: Lab Results 06/10/23 Range/Units 10:43 COVID-19 (KAYLA) Negative (Negative) COVID-19 Clin Com See Note Influenza Type A (YOHANNES) Negative (Negative) Influenza Type B (YOHANNES) Negative (Negative) Influenza A & B Note See Note Independent Interpretation I performed an independent interpretation of an: Plain X-Ray Interpretation: My interpretation is in agreement with the radiologist's impression of this imaging study. EXAMINATION: XR CHEST CLINICAL INFORMATION: 53-year-old female with shortness of breath COMPARISON: 06/18/2015 TECHNIQUE: 2 views of the chest were obtained. FINDINGS: No significant abnormality is noted involving the heart, lungs, mediastinum, bony thorax or soft tissues. XR/XR chest 2V IMPRESSION: Unremarkable examination. Dictated By: Rebecca Beltrán MD Signed By: Electronically signed by Rebecca Beltrán MD 06/10/23 1114 Radiology Impression Discussion of test interpretation with radiology: I have reviewed the radiologist's reading. Chronic Conditions Patient?s care impacted by: Hypertension and Other (smoker) Discharge Plan Discharge Clinical Impression: URI (upper respiratory infection) Patient Disposition: Home, Self-Care Instructions: Upper Respiratory Infection (DC) Additional Instructions: Follow up with your primary care provider. Return to the emergency department immediately if your symptoms worsen or if you develop any dizziness, shortness of breath, difficulty breathing, chest pain, blurry vision, loss of vision, nausea, vomiting, abdominal pain, fever, chills, back pain, or any other complaints. Prescriptions: New prednisone 20 mg tablet 20 mg PO DAILY 7 Days Qty: 7 0RF No Action nystatin 100,000 unit/gram powder 1 appl topical TID 10 Days Qty: 60 3RF cholecalciferol (vitamin D3) 50 mcg (2,000 unit) capsule 50 mcg PO DAILY 90 Days Qty: 90 3RF pravastatin 40 mg tablet 40 mg PO BEDTIME 90 Days Qty: 90 1RF Referrals: Joe Small MD [Primary Care Provider] - Interventions: ED Discharge Assessment Last Done: 06/10/23 12:22 Discharge Date/Time: 06/10/23 12:22 Print Language: Romansh
[2023-06-10 11:09] LABS: COVID-19 Test Negative (Negative); IDNOW Serial# 08D9AD1C
[2023-06-10 11:10] LABS: IDNOW Serial# 9DB6401D; Influenza A Negative (Negative); Influenza B2 Negative (Negative)
== END 2023-06-10 12:22 | disposition home or self-care (01) ==
PROVIDERS: Emergency Provider Emergency Medicine Emergency Medical Services; PCP Internal Medicine
DX: J06.9 Acute upper respiratory infection, unspecified (principal); I10 Essential (primary) hypertension; F17.210 Nicotine dependence, cigarettes, uncomplicated; Z71.6 Tobacco abuse counseling; Z11.52 Encounter for screening for COVID-19
CPT/HCPCS: 71046; 87502; 87635; 99283

== ENCOUNTER 2023-07-01 11:23 | Outpatient (REF) | payer OTHER, SELFPAY ==
[2023-07-08 12:49] LABS: HPV mRNA E6/E7 rflx Not Detected (Not Detected)
== END 2023-07-01 11:24 | disposition home or self-care (01) ==
LOC: HO.LNP 11:23
PROVIDERS: PCP Internal Medicine; Visit Provider Obstetrics & Gynecology
DX: Z01.419 Encounter for gynecological examination (general) (routine) without abnormal findings (principal); Z11.51 Encounter for screening for human papillomavirus (HPV)
CPT/HCPCS: 87624; 88142; 99386

== ENCOUNTER 2023-07-01 11:23 | Outpatient (AMB) | payer OTHER, SELFPAY ==
[2023-07-01 11:26] VITALS: BP 138/89; BMI 41.0
--- NOTE | 2023-07-01 11:26 | A.OFFVIS_ITS ---
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 No complaints. Last Pap/HPV was in 2013 was negative Last Mammogram was BI-RADS 1 in 08/17 No previous screening [facility] Medical History Cervical cancer screening Upper respiratory tract infection Breast cancer screening Colon cancer screening Obesity (BMI 30-39.9) Menopausal symptoms Annual physical exam Vitamin D deficiency ASCUS with positive high risk HPV cervical Benign essential hypertension Hidradenitis Mixed hyperlipidemia Surgical History History of removal of cyst (~2014) History of cholecystectomy History of tubal ligation (~1994) Family History Father Emphysema lung Diabetes Myocardial infarction Mother Hypertension TIA (transient ischemic attack) Maternal Uncle Colon cancer Bladder cancer Sister Medley syndrome Endometriosis Abdominal malignancy Brother Leukemia Social History Housing: Apartment Alcohol intake: never Patient Tobacco Use Status: Current everyday Tobacco user Cigarette Packs Per Day: 1 Cigarettes Per Day: 20 e-Cigarette/Vaping Use: Never Used Second Hand Smoke Exposure: Yes Patient : No service: No Current occupational status: employed Cognitive needs: No Hearing needs: No Vision needs: No Female Reproductive History Menstrual Age of Menarche: 17 Duration of menses: 6-7 days Total pregnancies: 3 Full term: 1 Premature: 1 Ectopics: 1 History of STI: No Date of Mammogram: 04/14/23 Review of Systems Const All systems reviewed & are unremarkable except as noted in HPI and below Card Reports as per HPI Resp Reports as per HPI GI Reports as per HPI and Reports no additional complaints Reports as per HPI Physical Exam Vital Signs: Last Vital Signs BP 138/89 07/01/23 11:26 BMI result Body Mass Index 41.0 Const General: cooperative, healthy appearing and comfortable Chest Chest palpation & inspection: normal inspection of the chest and normal palpation of entire chest wall Breast/axilla inspection: normal inspection of the breasts and normal inspection of the axillae Breast/axilla palpation: normal palpation of the breasts, normal palpation of the axillae and no axillary lymphadenopathy Resp Effort & Inspection: normal respiratory effort Auscultation: clear to auscultation bilaterally Percussion: percussion normal Cardio Palpation: normal PMI Rate: regular rate Rhythm: regular rhythm Heart sounds: no murmurs and no rubs Peripheral pulses: Peripheral pulses 2+ throughout GI Inspection: Yes normal to inspection Palpation (GI): Soft to palpation, nontender, no guarding, not rigid and No hepatosplenomegaly present Percussion: Yes normal to percussion Auscultation: normal bowel sounds Rectal Exam - Female: deferred General: Yes bladder normal to palpation External Female Exam: No lesion Speculum Exam - Vagina: normal appearance of the vagina, normal palpation, normal vaginal discharge and not erythematous Speculum Exam - Cervix: normal appearance of the cervix and normal palpation Bimanual exam- vagina & uterus: normal bimanual exam, normal palpation, uterine size normal, bladder normal to palpation, consistency normal and normal palpation Bimanual Exam- Adnexa, other: normal adnexae, no masses and no tenderness Assessment & Plan Assessment & Plan (1) Well woman exam: Code(s): Z01.419 - Encounter for gynecological examination (general) (routine) without abnormal findings Plan: Co testing done. Counseled the patient about the recommended dietary allowance of 1200 mg of Calcium & 600 IU of vitamin D. Instructions given the patient to schedule her next screening Mammogram in 04/19. The patient is scheduled with GI for a consult regarding screening colonoscopy . The patient was instructed to perform monthly self-breast exams and schedule annual exam in a year. All questions answered and the patient verbalized understanding. Coding Level of Care Code New Pt Prev Care 40-64y(24916) Diagnoses Well woman exam Z01.419
== END 2023-07-01 11:45 | disposition home or self-care (01) ==
PROVIDERS: PCP Internal Medicine; Visit Provider Obstetrics & Gynecology
DX: Z01.419 Encounter for gynecological examination (general) (routine) without abnormal findings (principal)
CPT/HCPCS: 99386

== ENCOUNTER 2023-07-24 15:26 | Outpatient (AMB) | payer OTHER, SELFPAY ==
--- NOTE | 2023-07-24 15:34 | A.OFFPC_ITS ---
Vital Signs 07/24/23 15:36 Height 5 ft 2 in Weight 222 lb 8 oz BMI 40.7 BP 110/78 Blood Pressure Location Lt brachial Position Sitting Pulse 95 Pulse Source Pulse Oximeter Pulse Oximetry (%) 98 Oxygen Delivery Method Room Air Intake Visit Reasons: 3 month f/u Intake Note: Patient is here to follow up on HTN, Hyperlipidemia. Direct Mail Coordinator Required: No Software Design Engineer: Not Required per policy Accompanied by: Self / Same As Patient Allergies No Known Allergies Allergy (Mild, Verified 08/22/25 11:28) N/A Tobacco use date assessed: 07/24/23 Dental Screening Dental Screen Date: 07/24/23 Did you have a dental visit in the last 12 months?: No Did you have a dental problem in the last 6 months where you did not have access to dental care?: No Was dental information given to patient?: No HPI 3 month f/u HPI Details follwo up cant sleep - mom has dementia labs not done yet PFS Medical History (Updated 08/22/25 @ 11:54 by ALEJANDRINA Nelson) Annual physical exam Scalp cyst Candidal intertrigo Well woman exam Breast cancer screening by mammogram Hematuria Colon cancer screening Upper respiratory tract infection Elevated TSH Cervical cancer screening Breast cancer screening ASCUS with positive high risk HPV cervical Hidradenitis Surgical History (Updated 08/22/25 @ 11:40 by ALEJANDRINA Nelson) History of excision of epidermal inclusion cyst Hx of surgical procedure (01/16/25) History of removal of cyst (~08/11/23) History of removal of cyst (~2014) History of cholecystectomy History of tubal ligation (~1994) Family History Father Emphysema lung Diabetes Myocardial infarction Mother Hypertension TIA (transient ischemic attack) Maternal Uncle Colon cancer Bladder cancer Sister Medley syndrome Endometriosis Abdominal malignancy Brother Leukemia Social History Housing: Apartment Are you a primary palliative care coordinator to a significant other at home: Yes (parent w/alzheimers) Do you presently have visiting nurse or other home services: No Alcohol intake: never Patient Tobacco Use Status: Current everyday Tobacco user Tobacco use type: Cigarette Cigarette Packs Per Day: 1 Cigarettes Per Day: 20.0 e-Cigarette/Vaping Use: Never Used Second Hand Smoke Exposure: Yes service: No Current occupational status: employed Cognitive needs: No Hearing needs: No Vision needs: No Female Reproductive History Menstrual Age of Menarche: 17 Questionnaire PHQ-9 Over the last 2 weeks, how often have you been bothered by any of the following problems? 1. Little interest or pleasure in doing things: not at all 2. Feeling down, depressed, or hopeless: not at all 3. Trouble falling or staying asleep, or sleeping too much: not at all 4. Feeling tired or having little energy: not at all 5. Poor appetite or overeating: not at all 6. Feeling bad about yourself - or that you are a failure or have let yourself or your family down: not at all 7. Trouble concentrating on things, such as reading the newspaper or watching television: not at all 8. Moving or speaking so slowly that other people could have noticed. Or the op posite - being so fidgety or restless that you have been moving around a lot more than usual: not at all 9. Thoughts that you would be better off or of hurting yourself in some way: not at all Total score: 0 Depression Screening Interpretation: Negative Depression Screening Done: Yes 20028 - PHQ-9 Billing: Yes Source: Developed by Drs. Eldon Harper, Vanna Ríos, Mikey Anderson and colleagues, with an educational pete from [employer]. Thrive Questionnaire Date Thrive assessed: 07/24/23 I am a: Patient What is your living situation today?: I have a steady place to live Within the past 12 months, did the food you bought not last and you didn't have the money to get more?: Never true Within the past 12 months, did you worry whether your food would run out before you got money to buy more?: Never true Do you have trouble paying for medicines?: No Do you have trouble getting transportation to medical appointments?: No Do you have trouble paying your heating and electricity bill?: No Do you have trouble taking care of your child, family member or friend?: No Do you have trouble with day-to-day activities such as bathing, preparing meals, shopping, managing finances, etc.?: No Are you currently unemployed and looking for a job?: No Are you interested in more education?: No Currently or been in a relationship where the following occur: no concerns reported THRIVE Score: 0 AUDIT C Alcohol Use Questionnaire (AUDIT-C) 1. How often do you have a drink containing alcohol?: Monthly or less 2. How many drinks containing alcohol do you have on a typical day when you are drinking?: 1 or 2 Total Score: 1 Score Reviewed/Action Taken: Yes FABIO-7 AMB Questionnaire FABIO-7 Date FABIO - 7 assessed: 07/24/23 Feeling nervous, anxious, or on edge: 0 = Not at all Not being able to stop or control worryin = Not at all Worrying too much about different things: 0 = Not at all Trouble relaxin = Not at all Being so restless that it is hard to sit still: 0 = Not at all Becoming easily annoyed or irritable: 0 = Not at all Feeling afraid as if something awful might happen: 0 = Not at all Total FABIO-7 score (0-4 normal; 5-9 mild; 10-14 moderate; 15-21 severe): 0 Source: Developed by Drs. Eldon Harper, Vanna Ríos, Mikey Anderson and colleagues, with an educational pete from [employer]. Physical exam (Primary Care) Vital Signs: Last Vital Signs Pulse 95 07/24/23 15:36 BP 110/78 07/24/23 15:36 Pulse Ox 98 07/24/23 15:36 Oxygen Delivery Method Room Air 07/24/23 15:36 BMI result Body Mass Index 40.7 Tobacco/Smoking Status: Tobacco use Status Tobacco use date assessed 07/24/23 07/24/23 15:40 Patient Tobacco Use Status Current everyday Tobacco 07/24/23 15:40 Tobacco use type Cigarette 07/24/23 15:40 e-Cigarette/Vaping Use Never Used 07/24/23 15:40 PHQ-9: PHQ-9 Score PHQ-9: Total score 0 07/24/23 16:09 Depression Screening Interpretation: Negative Thrive Assessment: Date of Thrive Assessment Date Thrive assessed 07/24/23 07/24/23 15:40 Currently or been in a relationship where the following occur: no concerns reported Coding Level of Care Code Admin Sign Off/No Billing Diagnoses Benign essential hypertension I10 Mixed hyperlipidemia E78.2 Vitamin D deficiency E55.9 Elevated TSH R79.89 Candidal intertrigo B37.2 Menopausal symptoms N95.1 Insomnia, unspecified type G47.00 Insomnia type: unspecified Smoker F17.200 Obesity (BMI 30-39.9) E66.9
[2023-07-24 15:36] VITALS: BP 110/78; PULSE 95; O2SAT 98; BMI 40.7
== END 2023-07-24 16:11 | disposition home or self-care (01) ==
PROVIDERS: PCP Internal Medicine; Visit Provider Internal Medicine
DX: I10 Essential (primary) hypertension (principal); E78.2 Mixed hyperlipidemia; E55.9 Vitamin D deficiency, unspecified; R79.89 Other specified abnormal findings of blood chemistry; B37.2 Candidiasis of skin and nail; N95.1 Menopausal and female climacteric states; G47.00 Insomnia, unspecified; F17.200 Nicotine dependence, unspecified, uncomplicated; E66.9 Obesity, unspecified
CPT/HCPCS: 99499

== ENCOUNTER 2023-08-05 09:42 | Outpatient (AMB) | payer OTHER, SELFPAY ==
--- NOTE | 2023-08-05 10:07 | MHC.OFFVIS ---
Intake Vital Signs 08/05/23 10:12 Height 5 ft 2 in Weight 233 lb BMI 42.6 BP 153/67 H Blood Pressure Location Rt brachial Position Sitting Pulse 73 Intake Visit Reasons: Cyst~ post scalp Intake Note: This patient presents for an assessment for posterior scalp cyst. Pt c/o; reports cyst of scalp, reports no tenderness, reports headaches but is not sure if it associated with the cyst. Safety Net Maker Required: No Accompanied by: Other Relationship Allergies No Known Allergies Allergy (Mild, Verified 08/05/23 10:22) N/A Medication List - Last Reconciled 08/05/23 by Maxime No MD cholecalciferol (vitamin D3) 50 mcg PO DAILY 90 days nystatin 1 appl topical TID 10 days pravastatin 40 mg PO BEDTIME 90 days trazodone 50 mg PO BEDTIME PRN 30 days HPI Cyst~ post scalp HPI Details 53-year-old female here for a scalp cyst. She has had this cyst on the back of her scalp for a few years and she says this has been increasing in size. She therefore wants this removed. She has other scalp cyst removed in the past. [facility] Medical History Cervical cancer screening Upper respiratory tract infection Breast cancer screening Colon cancer screening Obesity (BMI 30-39.9) Menopausal symptoms Annual physical exam Vitamin D deficiency ASCUS with positive high risk HPV cervical Benign essential hypertension Hidradenitis Mixed hyperlipidemia Surgical History History of removal of cyst (~2014) History of cholecystectomy History of tubal ligation (~1994) Family History Father Emphysema lung Diabetes Myocardial infarction Mother Hypertension TIA (transient ischemic attack) Maternal Uncle Colon cancer Bladder cancer Sister Medley syndrome Endometriosis Abdominal malignancy Brother Leukemia Social History Housing: Apartment Alcohol intake: never Patient Tobacco Use Status: Current everyday Tobacco user Tobacco use type: Cigarette Cigarette Packs Per Day: 1 Cigarettes Per Day: 20 e-Cigarette/Vaping Use: Never Used Second Hand Smoke Exposure: Yes service: No Current occupational status: employed Cognitive needs: No Hearing needs: No Vision needs: No Female Reproductive History Menstrual Age of Menarche: 17 Review of Systems Const Denies chills and Denies fever(s) Card Denies chest pain, Denies dyspnea and Denies dyspnea on exertion Resp Denies cough, Denies dyspnea and Denies dyspnea on exertion GI Denies hematochezia and Denies change in bowel habits Denies hematuria Musc Denies back pain and Denies limited range of motion Neuro Denies focal weakness and Denies convulsions Psych Denies depression and Denies mood swings Physical Exam Vital Signs: Last Vital Signs Pulse 73 08/05/23 10:12 BP 153/67 H 08/05/23 10:12 BMI result Body Mass Index 42.6 Const Other: Morbidly obese General: comfortable and no acute distress Orientation/consciousness: patient oriented x3 HEENT Other: Cystic mass on the scalp, about 2.8 cm, posterior aspect Neck Neck: Yes no lymphadenopathy Resp Auscultation: clear to auscultation bilaterally Cardio Rhythm: regular rhythm GI Palpation (GI): Soft to palpation, nontender and no guarding Neuro General: patient oriented x3 Assessment & Plan Assessment & Plan (1) Subcutaneous nodule of head: Code(s): R22.0 - Localized swelling, mass and lump, head Plan: This appears to be a scalp cyst. I explained the technique of excision under local anesthesia. I reviewed the risks including but not limited to bleeding, infections and poor healing. She understands and wants to proceed. This will be scheduled at the minor procedure room. Coding Level of Care Code Est Pt Level 3 (16575) Diagnoses Subcutaneous nodule of head R22.0
[2023-08-05 10:12] VITALS: BP 153/67; PULSE 73; BMI 42.6
== END 2023-08-05 11:39 | disposition home or self-care (01) ==
PROVIDERS: PCP Internal Medicine; Visit Provider Surgery
DX: R22.0 Localized swelling, mass and lump, head (principal)
CPT/HCPCS: 99213

== ENCOUNTER → 2023-08-05 09:42 | Outpatient (BNVA) | payer OTHER, SELFPAY | PROVIDERS: PCP Internal Medicine; Visit Provider Surgery | DX: R22.0 Localized swelling, mass and lump, head (principal) | CPT/HCPCS: 99212 ==

== ENCOUNTER 2023-08-07 08:29 | Outpatient (REF) | payer OTHER, SELFPAY ==
[2023-08-07 08:50] LABS: MANUAL DIFF FLAG NO
[2023-08-07 09:26] LABS: Basophils Percent Auto 0.5 % (0-2); Eosinophils Absolute Auto 0.2 X10*3/uL (0.0-0.4); Eosinophils Percent Auto 2.2 % (0-4); Hematocrit 42.8 % (37.0-47.0); Imm Gran Abs Auto 0.05 X10*3/uL (0.00-0.03); Imm Gran Pct Auto 0.6 % (0.0-0.4); Lymphocytes Absolute Auto 2.1 X10*3/uL (1.2-4.9); Lymphocytes Percent Auto 27.8 % (20-40); Mean Corpuscular HGB Conc 32.7 g/dl (31.0-35.0); Mean Corpuscular Hemoglobin 28.2 pg (27.0-33.0); Mean Corpuscular Volume 86.3 fL (80.0-98.0); Mean Platelet Volume 10.2 fL (9.4-12.3); Monocytes Absolute Auto 0.6 X10*3/uL (0.1-1.2); Monocytes Percent Auto 8.2 % (2-11); Neutrophils Absolute Auto 4.7 x10*3/uL (2.0-8.3); Neutrophils Percent Auto 60.7 % (45-73); Platelet Count 247 X10*3/uL (160-400); Red Blood Count 4.96 X10*6/uL (4.20-5.50); Red Cell Distribution Width 14.4 % (11.0-16.0); White Blood Count 7.7 X10*3/uL (4.8-10.8)
[2023-08-07 10:04] LABS: Alanine Aminotransferase 12 U/L (0-31); Albumin Level 3.7 g/dL (3.5-5.0); Alkaline Phosphatase 70 U/L (39-117); Anion Gap 10 (12-20); Aspartate Amino Transferase 12 U/L (5-31); Bilirubin Total 0.4 mg/dL (0.0-1.0); Blood Urea Nitrogen 13 mg/dL (9-16); Calcium 9.1 mg/dL (8.4-10.2); Carbon Dioxide 25 mmol/L (22-29); Chloride 107 mmol/L (96-108); Cholesterol 253 mg/dL (<200); Estimated Glomerular Filt Rate > 60; Glucose Fasting 94 mg/dL (60-99); HDL Cholesterol 48 mg/dL (>40); LDL Cholesterol Calculated 146 mg/dL (<100); Potassium 4.1 mmol/L (3.3-5.1); Sodium 138 mmol/L (135-145); Total Protein 7.4 g/dL (6.5-8.0); Triglycerides 299 mg/dL (<150)
[2023-08-07 10:31] LABS: Free T4 (Free Thyroxine) 0.76 ng/dL (0.71-1.85); Thyroid Stimulating Hormone 6.92 uIU/mL (0.32-4.0); Vitamin D 25-OH Total 34.5 ng/mL (>30)
== END 2023-08-07 08:30 | disposition home or self-care (01) ==
LOC: HO.LAB 08:29
PROVIDERS: PCP Internal Medicine; Visit Provider Internal Medicine
DX: E78.00 Pure hypercholesterolemia, unspecified (principal); E55.9 Vitamin D deficiency, unspecified; R79.89 Other specified abnormal findings of blood chemistry; I10 Essential (primary) hypertension
CPT/HCPCS: 36415; 80053; 80061; 82306; 84439; 84443; 85025

== ENCOUNTER 2023-08-11 12:33 | Outpatient (REF) | payer OTHER, SELFPAY ==
[2023-08-11 12:42] VITALS: BP 142/86; PULSE 79; RESP 18; TEMP 36.7; O2SAT 98; BMI 40.8
--- NOTE | 2023-08-11 13:28 | W.PM.OPN ---
Operative Note Operative Note Date of Service: 08/11/23 Narrative: Preop diagnosis: Scalp mass, occipital area Postop diagnosis: Scalp cyst, occipital area, about 3 cm in diameter Procedure: Excision of scalp cyst under local anesthesia Surgeon: Maxime No MD The patient is a 53 year old female with a mass on the scalp in the occipital area, well-defined and rounded. She understood the technique of excision under local anesthesia and was aware of the risks, benefits, and alternatives She was brought to the minor procedure room. She was placed in prone position. The area of the scalp mass was prepped and draped. Lidocaine 1% was used for local anesthesia. I made an incision on the skin overlying the cyst using blade 15. This carried down through the full-thickness of skin until a cyst capsule was visualized. I sharply dissected the cyst capsule off of the rest of the skin and subcutaneous layer until this was delivered. This was consistent with the Pilar cyst. This was 3 cm in diameter. I irrigated the area of incision. I closed the incision with full-thickness nylon 3-0 interrupted sutures. The procedure was then completed She tolerated the procedure well. There were no immediate complications. She was given wound care instructions and will be seen in the office for follow-up. Estimated blood loss was less than 5 cc.
== END 2023-08-11 12:34 | disposition home or self-care (01) ==
LOC: HO.MS 12:33
PROVIDERS: PCP Internal Medicine; Visit Provider Surgery
PROC: (CPT 11423; principal; 2023-08-11 13:00)
DX: L72.9 Follicular cyst of the skin and subcutaneous tissue, unspecified (principal)
CPT/HCPCS: 11423; 88304

== ENCOUNTER → 2023-08-11 12:33 | Outpatient (BNV) | payer OTHER, SELFPAY | PROVIDERS: PCP Internal Medicine; Visit Provider Surgery | DX: L72.11 Pilar cyst (principal) | CPT/HCPCS: 11423 ==

== ENCOUNTER 2023-08-27 10:52 | Outpatient (AMB) | payer OTHER, SELFPAY ==
--- NOTE | 2023-08-27 10:53 | A.OFFVIS_ITS ---
Intake Visit Reasons: s/p exc scalp cyst Intake Note: This patient presents for a follow-up assessment status post excision of scalp cyst. Patient c/o: reports no complaints. 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 She tolerated the procedure well currently denies significant complaints. [facility] Medical History Cervical cancer screening Upper respiratory tract infection Breast cancer screening Colon cancer screening Obesity (BMI 30-39.9) Menopausal symptoms Annual physical exam Vitamin D deficiency ASCUS with positive high risk HPV cervical Benign essential hypertension Hidradenitis Mixed hyperlipidemia Surgical History History of removal of cyst (~08/11/23) History of removal of cyst (~2014) History of cholecystectomy History of tubal ligation (~1994) Family History Father Emphysema lung Diabetes Myocardial infarction Mother Hypertension TIA (transient ischemic attack) Maternal Uncle Colon cancer Bladder cancer Sister Medley syndrome Endometriosis Abdominal malignancy Brother Leukemia Social History Housing: Apartment Alcohol intake: never Patient Tobacco Use Status: Current everyday Tobacco user Tobacco use type: Cigarette Cigarette Packs Per Day: 1 Cigarettes Per Day: 20 e-Cigarette/Vaping Use: Never Used Second Hand Smoke Exposure: Yes service: No Current occupational status: employed Cognitive needs: No Hearing needs: No Vision needs: No Female Reproductive History Menstrual Age of Menarche: 17 Review of Systems Const Denies chills and Denies fever(s) Physical Exam Const General: comfortable and no acute distress HEENT Other: Excision site is well healed, not infected, sutures intact Assessment & Plan Assessment & Plan (1) Subcutaneous nodule of head: Code(s): R22.0 - Localized swelling, mass and lump, head Category: Medical Plan: Status post excision. Her path report shows a pilar cyst. Her incision is well healed. I removed all her sutures. She can follow up on a p.r.n. basis. Coding Level of Care Code Global (55649) Diagnoses Subcutaneous nodule of head R22.0
== END 2023-08-27 11:01 | disposition home or self-care (01) ==
PROVIDERS: PCP Internal Medicine; Visit Provider Surgery
DX: R22.0 Localized swelling, mass and lump, head (principal)
CPT/HCPCS: 99024

== ENCOUNTER → 2023-08-27 10:52 | Outpatient (BNVA) | payer OTHER, SELFPAY | PROVIDERS: PCP Internal Medicine; Visit Provider Surgery | DX: Z48.817 Encounter for surgical aftercare following surgery on the skin and subcutaneous tissue (principal); Z98.890 Other specified postprocedural states | CPT/HCPCS: 99212 ==

== ENCOUNTER 2023-10-05 10:37 | Outpatient (AMB) | payer OTHER, SELFPAY ==
--- NOTE | 2023-10-05 10:54 | A.OFFVIS_ITS ---
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 Meds- None Allergies to Antibiotic- No Known Allergies Blood Thinner- None Conduit Helper Required: No Accompanied by: Self / Same As Patient Allergies No Known Allergies Allergy (Mild, Verified 10/05/23 10:55) N/A Medication List - Last Reconciled 10/05/23 by Rodrick Riley MD cholecalciferol (vitamin D3) 50 mcg PO DAILY 90 days nystatin 1 appl topical TID 10 days pravastatin 40 mg PO BEDTIME 90 days trazodone 50 mg PO BEDTIME PRN 30 days HPI Comments Details: Kerry is here with daughter Sanjuana, she was referred for microscopic hematuria. Comorbidity nicotine dependence. The patient states she cigarettes a pack a da y. She states she wants treatment for urinary incontinence. She leaks with coughing, walking, largest sitting. She denies leakage associated with urgency. I have discussed reasons for blood in the urine may include but are not limited to kidney stones, cancer in the urinary tract, BPH, kidney stone disease or inflammatory conditions of the urinary tract. I have discussed workup to include cystoscopy evaluation. I have also discussed a evaluation with urodynamics, discussed pending on results treatment options to include bulking agent to bladder neck proximal urethra. [facility] Medical History Cervical cancer screening Upper respiratory tract infection Breast cancer screening Colon cancer screening Obesity (BMI 30-39.9) Menopausal symptoms Annual physical exam Vitamin D deficiency ASCUS with positive high risk HPV cervical Benign essential hypertension Hidradenitis Mixed hyperlipidemia Surgical History History of removal of cyst (~08/11/23) History of removal of cyst (~2014) History of cholecystectomy History of tubal ligation (~1994) Family History Father Emphysema lung Diabetes Myocardial infarction Mother Hypertension TIA (transient ischemic attack) Maternal Uncle Colon cancer Bladder cancer Sister Medley syndrome Endometriosis Abdominal malignancy Brother Leukemia Social History Housing: Apartment Alcohol intake: never Patient Tobacco Use Status: Current everyday Tobacco user Tobacco use type: Cigarette Cigarette Packs Per Day: 1 Cigarettes Per Day: 20 e-Cigarette/Vaping Use: Never Used Second Hand Smoke Exposure: Yes service: No Current occupational status: employed Cognitive needs: No Hearing needs: No Vision needs: No Female Reproductive History Menstrual Age of Menarche: 17 Review of Systems Const All systems reviewed & are unremarkable except as noted in HPI and below Reports no additional complaints Eyes Reports no additional complaints ENT Reports no additional complaints Card Reports no additional complaints Resp Reports no additional complaints GI Reports no additional complaints Reports as per HPI Musc Reports no additional complaints Skin/Breast Reports system reviewed and no additional complaints, except as documented Neuro Reports no additional complaints Psych Reports no additional complaints Endo Reports no additional complaints Darrin/Lymph Reports no additional complaints Aller/Immun Reports no additional complaints Physical Exam Const General: cooperative, healthy appearing and no acute distress Nutritional Appearance: overweight Orientation/consciousness: patient oriented x3 HEENT Head: Yes normal to inspection, Yes normocephalic and Yes atraumatic Eyes Conjunctivae: conjunctivae normal Neck Neck: Yes normal visual inspection and Yes trachea midline Chest Chest palpation & inspection: normal inspection of the chest Resp Effort & Inspection: normal respiratory effort Cardio Jugular venous distension: no JVD GI Inspection: Yes normal to inspection Skin General skin exam: no rashes or lesions noted Neuro General: patient oriented x3 Extrem General: No edema Psych Appearance: grossly normal Results AMB Urinalysis, Automated UA Leukoctes 70 Sintia/uL Last Edit by BARTOLOME Escobar on 10/05/23 11:06 1+ Jeremy Dsouza 10/05/23 11:06 UA Nitrite Negative Last Edit by BARTOLOME Escobar on 10/05/23 11:06 UA Urobilinogen 0.2 mg/dL Last Edit by BARTOLOME Escobar on 10/05/23 11:0 6 UA Protein 100 mg/dL Last Edit by BARTOLOME Escobar on 10/05/23 11:06 2+ Jeremy Dsouza 10/05/23 11:06 UA pH 6.0 Last Edit by BARTOLOME Escobar on 10/05/23 11:06 UA Blood 200 Siddharth/uL Last Edit by BARTOLOME Escobar on 10/05/23 11:06 3+ Jeremy Dsouza 10/05/23 11:06 UA Specific [place] 1.005 Last Edit by BARTOLOME Escobar on 10/05/23 11: 06 UA Ketone Negative Last Edit by BARTOLOME Escobar on 10/05/23 11:06 UA Bilirubin 0 mg/dL Last Edit by BARTOLOME Escobar on 10/05/23 11:06 UA Glucose 0 mg/dL Last Edit by BARTOLOME Escobar on 10/05/23 11:06 Results Reviewed Results Reviewed: Laboratory Last Values Urine pH (Auto) 6.0 10/05/23 11:05 Specific [place] (Auto) 1.005 10/05/23 11:05 Urine Protein (Auto) 100 mg/dL 10/05/23 11:05 Glucose (UA)(Auto) 0 mg/dL 10/05/23 11:05 Urine Ketones (Auto) Negative 10/05/23 11:05 Urine Blood (Auto) 200 Siddharth/uL 10/05/23 11:05 Urine Nitrite (Auto) Negative 10/05/23 11:05 Urine Bilirubin (Auto) 0 mg/dL 10/05/23 11:05 Urine Urobilinogen (Auto) 0.2 mg/dL 10/05/23 11:05 Leukocyte Esterase (Auto) 70 Sintia/uL 10/05/23 11:05 Assessment & Plan Assessment & Plan (1) Smoker: Code(s): F17.200 - Nicotine dependence, unspecified, uncomplicated Category: Social Hx (2) Microscopic hematuria: Code(s): R31.29 - Other microscopic hematuria Category: Medical (3) Urinary incontinence: Code(s): R32 - Unspecified urinary incontinence Category: Medical (4) Hematuria: Code(s): R31.9 - Hematuria, unspecified Category: Medical Plan CT urogram, follow-up office cystoscopy, pelvic exam at that time. Urodynamics for further evaluation of urinary incontinence. Orders: Orders AMB Urinalysis Automated Today Z13.9 - Encounter for screening, unspecified CT urogram Today F17.200 - Nicotine dependence, unspecified, uncomplicated, R31.9 - Hematuria, unspecified Patient Instructions: The patient had an opportunity to ask questions regarding treatment plan. The patient expressed understanding and agreement with the above treatment plan. The patient is aware they should contact our office by phone for worsening of their current condition or the appearance of new symptoms. Compliance is encouraged with any medications and followup testing that is ordered. It is a privilege to be allowed the opportunity to participate in the urologic care of your patient. If you have any questions or concerns regarding treatment for the above conditions please do not hesitate to contact me. The office telephone contact is [phone]. This note is constructed in part using voice recognition software. While every effort has been made to ensure accuracy liaison inspection laboratory assistant errors may have been included. Yours sincerely, Rodrick Riley MD Coding Level of Care Code New Pt Level 4 (13182) Diagnoses Smoker F17.200 Microscopic hematuria R31.29 Urinary incontinence R32 Hematuria R31.9
== END 2023-10-05 11:43 | disposition home or self-care (01) ==
PROVIDERS: PCP Internal Medicine; Visit Provider Urology
DX: F17.200 Nicotine dependence, unspecified, uncomplicated (principal); R31.29 Other microscopic hematuria; R32 Unspecified urinary incontinence; R31.9 Hematuria, unspecified; Z13.9 Encounter for screening, unspecified
CPT/HCPCS: 99204

== ENCOUNTER → 2023-10-05 10:37 | Outpatient (BNVA) | payer OTHER, SELFPAY | PROVIDERS: PCP Internal Medicine; Visit Provider Urology | DX: R31.29 Other microscopic hematuria (principal); R32 Unspecified urinary incontinence; R31.9 Hematuria, unspecified; F17.210 Nicotine dependence, cigarettes, uncomplicated | CPT/HCPCS: 81003; 99202 ==

== ENCOUNTER 2023-11-12 14:14 | Outpatient (AMB) | payer OTHER, SELFPAY ==
--- NOTE | 2023-11-12 14:32 | A.OFFVIS_ITS ---
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 CT Urogram pending 11/30/23. Cystoscopy findings: Bladder mucosa no suspicious lesions noted, pelvic exam - no significant prolapse, leakage on valsalva. 10/05/23--Kerry is here with daughter Sanjuana, she was referred for microscopic hematuria. Comorbidity nicotine dependence. The patient states she cigarettes a pack a day. She states she wants treatment for urinary incontinence. She leaks with coughing, walking, largest sitting. She denies leakage associated with urgency. I have discussed reasons for blood in the urine may include but are not limited to kidney stones, cancer in the urinary tract, BPH, kidney stone disease or inflammatory conditions of the urinary tract. I have discussed workup to include cystoscopy evaluation. I have also discussed a evaluation with urodynamics, discussed pending on results treatment options to include bulking agent to bladder neck proximal urethra. [facility] Medical History Cervical cancer screening Upper respiratory tract infection Breast cancer screening Colon cancer screening Obesity (BMI 30-39.9) Menopausal symptoms Annual physical exam Vitamin D deficiency ASCUS with positive high risk HPV cervical Benign essential hypertension Hidradenitis Mixed hyperlipidemia Surgical History History of removal of cyst (~08/11/23) History of removal of cyst (~2014) History of cholecystectomy History of tubal ligation (~1994) Family History Father Emphysema lung Diabetes Myocardial infarction Mother Hypertension TIA (transient ischemic attack) Maternal Uncle Colon cancer Bladder cancer Sister Medley syndrome Endometriosis Abdominal malignancy Brother Leukemia Social History Housing: Apartment Alcohol intake: never Patient Tobacco Use Status: Current everyday Tobacco user Tobacco use type: Cigarette Cigarette Packs Per Day: 1 Cigarettes Per Day: 20 e-Cigarette/Vaping Use: Never Used Second Hand Smoke Exposure: Yes service: No Current occupational status: employed Cognitive needs: No Hearing needs: No Vision needs: No Female Reproductive History Menstrual Age of Menarche: 17 Review of Systems Const All systems reviewed & are unremarkable except as noted in HPI and below Reports no additional complaints Eyes Reports no additional complaints ENT Reports no additional complaints Card Reports no additional complaints Resp Reports no additional complaints GI Reports no additional complaints Reports as per HPI Musc Reports no additional complaints Skin/Breast Reports system reviewed and no additional complaints, except as documented Neuro Reports no additional complaints Psych Reports no additional complaints Endo Reports no additional complaints Darrin/Lymph Reports no additional complaints Aller/Immun Reports no additional complaints Office Procedures Cystoscopy Consent Discussed risk and benefit or proposed procedure with the patient. Information consent for procedure given to the patient. Discussed technical aspects, risks, benefits and alternatives in full. Addressed all of the patient's questions and concerns regarding the procedure. The patient demonstrated knowledge and understanding. They wish to proceed with this procedure. Preparation The patient was prepped in the usual manner. A paintings conservator was present and in the room. Genitalia was prepped with betadine solution in a sterile manner. Lidocaine Jelly 2% was placed into the urethra and 16Fr flexible Olympus cystoscope was inserted into the meatus after adequate lubrication. Procedure Time out per protocol performed. Bladder Inspection Bladder Inspection: The bladder was inspected in its entirety with utilization retroflexion displaying: Tumor(s): no suspicious lesions noted Trabeculation: NA Mucosal Erthema: NA Orifices: normal shape and position Urethra: normal Cystoscopy findings: WNL, no suspicious bladder lesions visualized [id number] DISPOSABLE SCOPE URO-G FLEXIBLE SCOPE Procedure code (CPT) selection complete Office Meds lidocaine HCl 2 % mucosal jelly in applicator Performing Provider: Rodrick Riley MD [facility] Administered by: Arslan Hall RN on 11/12/23 14:50 Dose Route Admin Location Dispensed Lot Number Expiration Date NDC Diplomatic Interpreter/Translator 10 mL intra-urethral 10 mL naproxen 500 mg tablet Performing Provider: Rodrick Riley MD Performing Location[facility] Administered by: Arslan Hall RN on 11/12/23 14:50 Dose Route Admin Location Dispensed Lot Number Expiration Date NDC Diplomatic Interpreter/Translator 500 mg PO 1 tab ciprofloxacin HCl 500 mg tablet Performing Provider: Rodrick Riley MD Performing Location[facility] Administered by: Arslan Hall RN on 11/12/23 14:50 Dose Route Admin Location Dispensed Lot Number Expiration Date NDC Diplomatic Interpreter/Translator 500 mg PO 1 tab Results AMB Urinalysis, Automated UA Leukoctes 15 Sintia/uL Last Edit by Mobspiree Deidre on 11/12/23 14:43 UA Nitrite Negative Last Edit by [email or web address] [employer] on 11/12/23 14:43 UA Urobilinogen 0.2 mg/dL Last Edit by Mobspiree [employer] on 11/12/23 14:43 UA Protein 30 mg/dL Last Edit by Mobspiree [employer] on 11/12/23 14:43 UA pH 5.5 Last Edit by Mobspiree [employer] on 11/12/23 14:43 UA Blood 200 Siddharth/uL Last Edit by Mobspiree [employer] on 11/12/23 14:43 UA Specific [place] 1.030 Last Edit by [employer] on 11/12/23 14:43 UA Ketone Negative Last Edit by Mobspiree [employer] on 11/12/23 14:43 UA Bilirubin 1 mg/dL Last Edit by Mobspiree Bre on 11/12/23 14:43 UA Glucose 0 mg/dL Last Edit by [email or web address] on 11/12/23 14:43 Results Reviewed Results Reviewed: Laboratory Last Values Urine pH (Auto) 5.5 11/12/23 14:34 Specific [place] (Auto) 1.030 11/12/23 14:34 Urine Protein (Auto) 30 mg/dL 11/12/23 14:34 Glucose (UA)(Auto) 0 mg/dL 11/12/23 14:34 Urine Ketones (Auto) Negative 11/12/23 14:34 Urine Blood (Auto) 200 Siddharth/uL 11/12/23 14:34 Urine Nitrite (Auto) Negative 11/12/23 14:34 Urine Bilirubin (Auto) 1 mg/dL 11/12/23 14:34 Urine Urobilinogen (Auto) 0.2 mg/dL 11/12/23 14:34 Leukocyte Esterase (Auto) 15 Sintia/uL 11/12/23 14:34 Assessment & Plan Assessment & Plan (1) Smoker: Code(s): F17.200 - Nicotine dependence, unspecified, uncomplicated Category: Social Hx (2) Microscopic hematuria: Code(s): R31.29 - Other microscopic hematuria Category: Medical (3) Urinary incontinence: Code(s): R32 - Unspecified urinary incontinence Category: Medical (4) Hematuria: Code(s): R31.9 - Hematuria, unspecified Category: Medical Plan CT urogram, pending 11/30/23 office cystoscopy, findings----. Urodynamics for further evaluation of urinary incontinence. Orders: Orders AMB Urinalysis Automated Today Z13.9 - Encounter for screening, unspecified AMB Cystoscopy Today R31.29 - Other microscopic hematuria Patient Instructions: The patient had an opportunity to ask questions regarding treatment plan. The patient expressed understanding and agreement with the above treatment plan. The patient is aware they should contact our office by phone for worsening of their current condition or the appearance of new symptoms. Compliance is encouraged with any medications and followup testing that is ordered. It is a privilege to be allowed the opportunity to participate in the urologic care of your patient. If you have any questions or concerns regarding treatment for the above conditions please do not hesitate to contact me. The office telephone contact is [phone]. This note is constructed in part using voice recognition software. While every effort has been made to ensure accuracy railroad baggage porter errors may have been included. Yours sincerely, Rodrick Riley MD Coding Level of Care Code Procedure Only Diagnoses Smoker F17.200 Microscopic hematuria R31.29 Urinary incontinence R32 Hematuria R31.9 CPT Codes Cystoscopy - CPT: 96115-[id number] ([id number])
== END 2023-11-12 15:14 | disposition home or self-care (01) ==
PROVIDERS: PCP Internal Medicine; Visit Provider Urology
DX: R31.29 Other microscopic hematuria (principal); R32 Unspecified urinary incontinence; R31.9 Hematuria, unspecified; F17.200 Nicotine dependence, unspecified, uncomplicated; Z13.9 Encounter for screening, unspecified
CPT/HCPCS: 52000

== ENCOUNTER → 2023-11-12 14:14 | Outpatient (BNVA) | payer OTHER, SELFPAY | PROVIDERS: PCP Internal Medicine; Visit Provider Urology | DX: R31.29 Other microscopic hematuria (principal); R32 Unspecified urinary incontinence; F17.210 Nicotine dependence, cigarettes, uncomplicated | CPT/HCPCS: 52000; 81003 ==

== ENCOUNTER 2023-11-17 16:38 | Outpatient (REF) | payer OTHER, SELFPAY | END 2023-11-17 16:39 | disposition home or self-care (01) | LOC: HO.LAB 16:38 | PROVIDERS: Visit Provider Urology | DX: Z13.9 Encounter for screening, unspecified (principal) | CPT/HCPCS: 87086 ==

== ENCOUNTER 2023-11-27 10:46 | Outpatient (AMB) | payer OTHER, SELFPAY ==
--- NOTE | 2023-11-27 11:11 | MHC.OFFVIS ---
Intake Visit Reasons: Urodynamics Intake Note: Kerry is a 53 year old female who presents to the office today for a Urodynamics study. Allergies No Known Allergies Allergy (Mild, Verified 11/27/23 11:12) N/A HPI Comments Details: 11/27/23--here for urodynamics. Findings consistent with stress urinary incontinence and intrinsic sphincter deficiency. Bladder was stable during the filling phase. Patient was not able to void with the catheters in place therefore recorded pressures are in adequate. Patient emptied bladder volume of 300 mL for a PVR 10 mL. I have discussed treatment options to include urethral bulking agent versus sling procedure. The patient is interested in bulk a mid urethral bulking agent. Discussed side effects to include urinary retention, UTI, hematuria, need to repeat procedure Review of chart: 11/12/23--Here for cystoscopy. CT Urogram pending 11/30/23. Cystoscopy findings: Bladder mucosa no suspicious lesions noted, pelvic exam - no significant prolapse, leakage on valsalva. 10/05/23--Kerry is here with daughter Sanjuana, she was referred for microscopic hematuria. Comorbidity nicotine dependence. The patient states she cigarettes a pack a day. She states she wants treatment for urinary incontinence. She leaks with coughing, walking, largest sitting. She denies leakage associated with urgency. I have discussed reasons for blood in the urine may include but are not limited to kidney stones, cancer in the urinary tract, BPH, kidney stone disease or inflammatory conditions of the urinary tract. I have discussed workup to include cystoscopy evaluation. I have also discussed a evaluation with urodynamics, discussed pending on results treatment options to include bulking agent to bladder neck proximal urethra. [facility] Medical History Cervical cancer screening Upper respiratory tract infection Breast cancer screening Colon cancer screening Obesity (BMI 30-39.9) Menopausal symptoms Annual physical exam Vitamin D deficiency ASCUS with positive high risk HPV cervical Benign essential hypertension Hidradenitis Mixed hyperlipidemia Surgical History History of removal of cyst (~08/11/23) History of removal of cyst (~2014) History of cholecystectomy History of tubal ligation (~1994) Family History Father Emphysema lung Diabetes Myocardial infarction Mother Hypertension TIA (transient ischemic attack) Maternal Uncle Colon cancer Bladder cancer Sister Medley syndrome Endometriosis Abdominal malignancy Brother Leukemia Social History Housing: Apartment Alcohol intake: never Patient Tobacco Use Status: Current everyday Tobacco user Tobacco use type: Cigarette Cigarette Packs Per Day: 1 Cigarettes Per Day: 20 e-Cigarette/Vaping Use: Never Used Second Hand Smoke Exposure: Yes service: No Current occupational status: employed Cognitive needs: No Hearing needs: No Vision needs: No Female Reproductive History Menstrual Age of Menarche: 17 Office Procedures Urodynamic Studies Consent Discussed risk and benefit or proposed procedure with the patient. Information consent for procedure given to the patient. Discussed technical aspects, risks, benefits and alternatives in full. Addressed all of the patient's questions and concerns regarding the procedure. The patient demonstrated knowledge and understanding. They wish to proceed with this procedure. Preparation The patient was prepped in the usual manner. A hammer adjuster was present and in the room. Genitalia was prepped with betadine solution in a sterile manner. Procedure Complex Uroflow Complex uroflow performed by: Rodrick Riley Maximum urinary flow rate (mL/second): 8.8 Voiding time (seconds): 7.4 Voided volume (mL): 62 Residual urine (mL): 0 mL Cystometrogram Vaginal/rectal catheter type: vaginal First sensation at (mL): 33 mL First desire at (mL): 109 mL Strong desire to void occured at (mL): 287 mL Strong desire detrussor pressure (cm H2O): 0.6 Maximum fill (mL): 310 mL Prep: The patient was prepped in the usual manner. A hammer adjuster was present and in the room. Genitalia was prepped with betadine solution in a sterile manner. 07960-Hzvtymnwwtrgnw w/ PACKING MACHINE PILOT CAN ROUTER 74158-Cfjcoju-Zoeszyhpghea First 90203-Bjrv/Urinary Muscle Study 97224-Remyi-Cdltkwjmo Pressure Test Procedure code (CPT) selection complete Office Meds nitrofurantoin monohydrate/macrocrystals 100 mg capsule Performing Provider: Rodrick Riley MD Performing [facility] [place] [facility] Administered by: Roe Odom LPN on 11/27/23 11:56 Dose Route Admin Location Dispensed Lot Number Expiration Date NDC Dry Sander 100 mg PO 1 cap Assessment & Plan Assessment & Plan (1) Urinary incontinence: Code(s): R32 - Unspecified urinary incontinence Category: Medical (2) Intrinsic sphincter deficiency (ISD): Code(s): N36.42 - Intrinsic sphincter deficiency (ISD) Category: Medical Plan Schedule cystoscopy bulk of mid urethral bulking agent for intrinsic sphincter deficiency. Orders: Orders AMB Urodynamics Studies Today R31.29 - Other microscopic hematuria, R31.9 - Hematuria, unspecified, R32 - Unspecified urinary incontinence Patient Instructions: The patient had an opportunity to ask questions regarding treatment plan. The patient expressed understanding and agreement with the above treatment plan. The patient is aware they should contact our office by phone for worsening of their current condition or the appearance of new symptoms. Compliance is encouraged with any medications and followup testing that is ordered. It is a privilege to be allowed the opportunity to participate in the urologic care of your patient. If you have any questions or concerns regarding treatment for the above conditions please do not hesitate to contact me. The office telephone contact is [phone]. This note is constructed in part using voice recognition software. While every effort has been made to ensure accuracy song writer errors may have been included. Yours sincerely, Rodrick Riley MD Coding Level of Care Code Est Pt Level 3 (71959) Diagnoses Urinary incontinence R32 Intrinsic sphincter deficiency (ISD) N36.42 CPT Codes Urodynamic Studies - CPT: 66272-Wedrosxorjrevv w/ PACKING MACHINE PILOT CAN ROUTER ([id number]) Urodynamic Studies - CPT: 37084-Amqdryp-Rcokszhohgqh First ([id number]) Urodynamic Studies - CPT: 93011-Dfng/Urinary Muscle Study ([id number]) Urodynamic Studies - CPT: 76112-Gnjwn-Doutoitnn Pressure Test ([id number])
== END 2023-11-27 12:08 | disposition home or self-care (01) ==
PROVIDERS: PCP Internal Medicine; Visit Provider Urology
DX: R32 Unspecified urinary incontinence (principal); N36.42 Intrinsic sphincter deficiency (ISD)
CPT/HCPCS: 51728; 51741; 51784; 51797; 99213

== ENCOUNTER → 2023-11-27 10:46 | Outpatient (BNVA) | payer OTHER, SELFPAY | PROVIDERS: PCP Internal Medicine; Visit Provider Urology | DX: R32 Unspecified urinary incontinence (principal); N36.42 Intrinsic sphincter deficiency (ISD) | CPT/HCPCS: 51728; 51741; 51784; 51797; 99212 ==

== ENCOUNTER 2023-11-30 15:19 | Outpatient (REF) | payer OTHER, SELFPAY ==
--- NOTE | ~2023-11-30 | CT_ITS ---
EXAMINATION: CT ABDOMEN AND PELVIS WITHOUT AND WITH CONTRAST CLINICAL INFORMATION: Hematuria. COMPARISON: None available. TECHNIQUE: Noncontrast CT of the abdomen and pelvis is performed followed by split bolus contrast-enhanced images using 85 mL Omnipaque 350 contrast. Postcontrast imaging is performed during the combined nephrogram and excretion phase. Sagittal and coronal reformatted images were obtained on the technologist's workstation for both the precontrast and postcontrast phases. This CT examination was performed using dose optimization techniques as appropriate, variously including the following: *Automated exposure control *Adjustment of mA and/or kV according to patient size (this includes techniques or standardized protocols for targeted exams where dose is matched to indication/reason for exam; i.e. extremities or head) *Use of iterative reconstruction technique DLP: 1272 mGy-cm FINDINGS: LUNG BASES: The lung bases appear clear, with no evidence of inflammation or nodules. LIVER, GALLBLADDER, AND BILIARY TREE: Mild fatty infiltration of the liver. The liver appears unremarkable in size and shape. No focal hepatic lesion or biliary ductal dilatation is appreciated. Status post cholecystectomy. PANCREAS: Unremarkable SPLEEN: Unremarkable ADRENAL GLANDS: Unremarkable KIDNEYS AND URETERS: 1.5 cm benign left mid simple renal cyst for which no further dedicated follow-up imaging as indicated. The kidneys otherwise appear unremarkable in size, shape, and attenuation. No hydronephrosis, hydroureter, or calculi seen. BLADDER: Unremarkable GASTROINTESTINAL TRACT: The small and large bowel appear unremarkable. No diverticulosis. Normal-appearing distal ileum and ABDOMINAL WALL: No significant hernia is appreciated. LYMPH NODES: No evidence of adenopathy by size criteria. VASCULAR: Unremarkable PELVIC VISCERA: Unremarkable OSSEOUS STRUCTURES: Severe disc space narrowing at L5-S1. CT/CT urogram IMPRESSION: No significant abnormal finding. Electronically signed by: Regan Wu MD 12/27/2023 05:08 PM EDT
[2023-11-30] MEDS: iohexoL 350 MG/ML 100 ML INFUS..BTL IV (16:16)
[2023-12-02 08:27] LABS: Creatinine POC 1.1 mg/dL (0.5-1.4); GFR POC 57
== END 2023-11-30 15:20 | disposition home or self-care (01) ==
LOC: HO.CT 15:19
PROVIDERS: PCP Internal Medicine; Visit Provider Urology
DX: R31.9 Hematuria, unspecified (principal); F17.200 Nicotine dependence, unspecified, uncomplicated
CPT/HCPCS: 74178; 82565; Q9967

== ENCOUNTER 2023-12-22 05:54 | Day surgery (SDC) | payer OTHER, SELFPAY ==
[2023-12-18 10:35] VITALS: BMI 40.6
[2023-12-22] VITALS (9 sets, daily range): BP systolic 127–163; BP diastolic 70–91; PULSE 73–87; RESP 14–18; TEMP 36–36.6; O2SAT 93–98; BMI 43.5
[2023-12-22] MEDS: Lactated Ringers 1,000 ML 50 ML IVCONT (06:46)
--- NOTE | 2023-12-22 07:14 | P.HPSUR_ITS ---
Pre-Procedural Eval Section A - 24 Hr Update-Section A only Date of Service: 12/22/23 The patient is an INPATIENT: No The patient has been examined within 24 hours of the surgical procedure. The History & Physical has been completed within 30 days and I have reviewed it.: Yes Section B - Complete if H&P > 30 days Chief Complaint: Intrinsic sphincter deficiency (ISD) Allergies: Allergies Allergy/AdvReac Type Severity Reaction Status Date / Time No Known Allergies Allergy Mild N/A Verified 12/22/23 06:08 Plan Diagnosis/Plan: Unchanged I have reviewed the history and physical and performed a pertinent physical examination on my patient. No changes have occurred unless specified. Cystoscopy Bulkamid urethral injection.I have discussed the risks of bulking injection to the proximal urethra to include but not limited to urine retention requiring a chu catheter, need to repeat the procedure, hematuria, and urg ency. Time Spent With Patient Time: Total time managing care of this patient today ____ minutes.
--- NOTE | 2023-12-22 07:23 | HO.ANESPROP2 ---
HPI - Anesthesia Eval Consult details Narrative: for cysto, Bulkamid PMFSH Active Problems Active Problems: All Active Problems Intrinsic sphincter deficiency (ISD) (Acute) Hematuria (Acute) Urinary incontinence (Acute) Microscopic hematuria (Acute) Subcutaneous nodule of head (Acute) Incontinence (Acute) Well woman exam (Acute) Elevated TSH (Acute) Vitamin D deficiency (Acute) Candidal intertrigo (Acute) Insomnia (Acute) Benign essential hypertension (Acute) Mixed hyperlipidemia (Acute) Smoker (Acute) Past Medical History Medical History Cervical cancer screening Upper respiratory tract infection Breast cancer screening Colon cancer screening Obesity (BMI 30-39.9) Menopausal symptoms Annual physical exam Vitamin D deficiency ASCUS with positive high risk HPV cervical Benign essential hypertension Hidradenitis Mixed hyperlipidemia Family History Family History Father Emphysema lung Diabetes Myocardial infarction Mother Hypertension TIA (transient ischemic attack) Maternal Uncle Colon cancer Bladder cancer Sister Medley syndrome Endometriosis Abdominal malignancy Brother Leukemia Family history of problems with anesthesia: No Surgical History Surgical History History of removal of cyst (~08/11/23) History of removal of cyst (~2014) History of cholecystectomy History of tubal ligation (~1994) History of Problems with Anesthesia: No Social History Social History Housing: Apartment Are you a primary career development coordinator to a significant other at home: Yes (parent w/alzheimers) Do you presently have visiting nurse or other home services: No Alcohol intake: never Patient Tobacco Use Status: Current everyday Tobacco user Tobacco use type: Cigarette Cigarette Packs Per Day: 1 Cigarettes Per Day: 20.0 e-Cigarette/Vaping Use: Never Used Second Hand Smoke Exposure: Yes Use of substances other than those prescribed or required for medical reasons: No Have you been hit, kicked, punched, or otherwise hurt by someone within the past year? If so, by whom?: No Are you DNR?: No Advance Directives: No Advance Directives Information Provided: Yes Recently lost weight without trying: No Nutrition Risks: No Nutritional Risk service: No Current occupational status: employed Cognitive needs: No Hearing needs: No Vision needs: No Meds Allergies Allergy/AdvReac Type Severity Reaction Status Date / Time No Known Allergies Allergy Mild N/A Verified 12/22/23 06:08 Active Medications: Current Medications Lactated Ringer's (Lr) 1,000 mls @ 50 mls/hr IVCONT .Q20H PITER Last Admin: 12/22/23 06:46 Dose: 50 mls/hr Exam Height,Weight and Vital Signs: Height 5 ft 2 in Weight 107.955 kg Last Vital Signs Temp 96.8 F 12/22/23 06:38 Pulse 84 12/22/23 06:38 Resp 14 12/22/23 06:38 BP 127/90 H 12/22/23 06:38 Pulse Ox 96 12/22/23 06:38 O2 Del Method Room Air 12/22/23 06:38 Airway Mallampati Class: II TM Dist: <=3cm Neck ROM: Full Denture: Upper Loose/Missing/Broken Teeth: No Heart: ok Lungs: ok Assessment and Plan Assessment Anesthesia Assessment: Anesthesia Plan Discussed and Chart Reviewed Final Anesthetic Review Family History of Problems with Anesthesia: No History of Problems with Anesthesia: No NPO: Yes ASA Class: III Final Preanesthetic Review: No Changes in Pt Med Stat, Meds/Allgs Chart Reviewed, Consent Obtained/Reviewed and Anes Risks/Benef Reviewed Patient Risk: Intermediate Procedure Risk: Low Anesthetic Plan Anesthetic Plan: GA and Agree w/ Assess. and Plan Disposition: Standard PACU
--- NOTE | 2023-12-22 08:24 | P.OP_ITS ---
Operative Note Operative Note Date of Service: 12/22/23 Narrative: Preop diagnosis: Intrinsic sphincter deficiency Postop diagnosis: Intrinsic sphincter deficiency Procedure: Cystoscopy urethral bulking with bulkamid system at the proximal urethra Surgeon: Dr. Rodrick iRley Details of procedure: The patient was brought into the operating room placed on the OR table in supine position IV sedation was administered. Antibiotics confirmed. The patient was placed in lithotomy position prepped and draped in the usual sterile fashion. Safety time-out was done. On pelvic examination under anesthesia, mild cystocele Grade I/II is noted. A 14 [place] straight catheter was used to send urine for culture. 2% lidocaine jelly was inserted transurethrally 10 mL. Using the 0 degree 11 cm cystoscope with the light cord in the 6 o'clock position, the bladder was filled with sterile water to 150 mL the bladder was visualized. With the sheath at the 5 o'clock position the needle was inserted to the 1 cm breana and 0.5 mL of gel was injected there was good bulking noted. This was repeated on the 7 o'clock position. The 2nd needle was inserted into the sheath and an injection was done at the 2 o'clock position and again at the 11 o'clock position. There was bulking of the mucosa noted with good coaptation. The patient tolerated the procedure and was taken to recovery in stable condition. Complication: none Drains: none
[2023-12-22] MEDS: Phenazopyridine HCL 200 MG TABLET PO (08:48)
--- NOTE | 2023-12-22 09:26 | PC.NURSE ---
Pt bladder scanned at 0912 p unsuccessful attempt to void. Bladder scan showed 514 ml. Pt in agreement with plan to straight cath. 12Fr straight cath obtained from OR. Pt then stated that she would like to attempt to void again before catheter insertion. Pt ambulated to bathroom (gait steady). Pt checked on and states that she is voiding.
--- NOTE | 2023-12-22 09:39 | PC.NURSE ---
Pt back to bathroom to void a second time. Dr Xavier Martin has spoken with the patient and pt verbalized understanding not to strain
--- NOTE | 2023-12-22 10:29 | PC.NURSE ---
12 Fr catheter with ballon inserted and draining orange (Pyridium) urine. Pt states is feeling much better. Awaiting response from surgeon as to whether catheter can be removed p bladder drained or if pt will be dc'd home with leg bag
== END 2023-12-22 12:31 | disposition home or self-care (01) ==
PROVIDERS: PCP Internal Medicine; Visit Provider Urology
PROC: (CPT 51715; principal; 2023-12-22 07:30)
DX: N36.42 Intrinsic sphincter deficiency (ISD) (principal); R32 Unspecified urinary incontinence; R31.29 Other microscopic hematuria; I10 Essential (primary) hypertension; E66.9 Obesity, unspecified; F17.210 Nicotine dependence, cigarettes, uncomplicated; Z98.890 Other specified postprocedural states
CPT/HCPCS: 51715; 87086; J0690; J2250; J2405; J2704; J3010; L8606

== ENCOUNTER → 2023-12-22 05:54 | Outpatient (BNV) | payer OTHER, SELFPAY | PROVIDERS: PCP Internal Medicine; Visit Provider Urology | DX: N36.42 Intrinsic sphincter deficiency (ISD) (principal) | CPT/HCPCS: 51715 ==

== ENCOUNTER → 2023-12-24 13:26 | Outpatient (BNVA) | payer OTHER, SELFPAY | PROVIDERS: PCP Internal Medicine; Visit Provider Urology | DX: R31.29 Other microscopic hematuria (principal); R31.9 Hematuria, unspecified; R32 Unspecified urinary incontinence | CPT/HCPCS: 51798 ==

== ENCOUNTER 2024-06-09 08:04 | Emergency (ER) | payer OTHER, SELFPAY ==
--- NOTE | ~2024-06-09 | XR_ITS ---
EXAMINATION: XR CHEST 2 VIEWS HISTORY: cough COMPARISON: Comparison is made with the prior examination dated 06/10/2023. FINDINGS: PA and lateral views of the chest are submitted. The lungs are expanded and clear. There is no pleural effusion, pneumothorax, or pulmonary vascular congestion. The heart is normal in size. The bones are intact. XR/XR chest 2V IMPRESSION: No acute cardiopulmonary abnormality. Electronically signed by: Eldon Cabrera MD 06/09/2024 11:11 AM LOUISA
[2024-06-09 08:06] VITALS: BP 161/79; PULSE 81; RESP 18; TEMP 36.3; O2SAT 99; BMI 40.3
[2024-06-09 08:33] LABS: IDNOW Serial# 08D9AD1C; Strep A Nucleic Acid Negative (Negative)
[2024-06-09 09:02] LABS: Influenza A PCR NEGATIVE (Negative); Influenza B PCR NEGATIVE (Negative); Resp Syncy Virus RNA Qual PCR NEGATIVE (Negative); SARS COV2 PCR INHOUSE NEGATIVE (Negative)
--- NOTE | 2024-06-09 11:20 | ED_ITS ---
HPI - General Adult General Chief complaint: Upper Respiratory Symptoms Stated complaint: Cough, wheezing, heaviness in chest Time Seen by Provider: 06/09/24 11:20 Source: patient Mode of arrival: ambulatory Limitations: no limitations History of Present Illness ED Provider: Adrienne Manley PA-C HPI narrative: Patient is a 54 year old assigned female at with a history of HTN, HLD, an d tobacco use presenting to the emergency department today with a cough. Patient states that she has had a cough for over a week and a half that is not getting better with OTC medication use. Patient denies any dizziness, lightheadedness, abdominal pain, nausea, vomiting, fever, chills, blurry vision, double vision, loss of vision, chest pain, difficulty breathing, shortness of breath, back pain, night sweats, pain with urination, increased urinary frequency, increased urinary urgency, blood in her urine or stool, syncope or a near syncopal episode, recent trauma or falls, bowel incontinence, bladder incontinence, or any other complaints at this time. Onset (ago): week(s) (1.5) Relieving factors: none Exacerbating factors: none Associated symptoms: cough Treatments prior to arrival: none Related Data Previous Rx's ?Medication ?Instructions ?Recorded nystatin 100,000 unit/gram topical 1 appl topical TID 10 days #60 02/20/23 powder grams trazodone 50 mg tablet 50 mg PO BEDTIME PRN sleep 30 days 11/02/23 #30 tabs doxycycline monohydrate 100 mg 100 mg PO BID 3 days #6 caps 12/22/23 capsule phenazopyridine 200 mg tablet 200 mg PO BID PRN burning or pain 12/22/23 (Pyridium) with urination #10 tabs cholecalciferol (vitamin D3) 50 50 mcg PO DAILY 90 days #90 caps 04/04/24 mcg (2,000 unit) capsule pravastatin 40 mg tablet 40 mg PO BEDTIME 90 days #90 tabs 04/04/24 albuterol sulfate 90 mcg/actuation 1 puff inhalation QID PRN 06/09/24 aerosol inhaler shortness of breath or wheezing #8.5 grams prednisone 20 mg tablet 20 mg PO DAILY 7 days #7 tabs 06/09/24 Allergies Allergy/AdvReac Type Severity Reaction Status Date / Time No Known Allergies Allergy Mild N/A Verified 06/09/24 08:09 Review of Systems Constitutional: Constitutional: Reports no additional constitutional complaints, Denies chills, Denies fever(s) and Denies night sweats Eyes: Eyes: Reports no additional eye complaints, Denies blurry vision, Denies change in vision, Denies diplopia, Denies eye discharge, Denies loss of vision and Denies eye pain ENT: Denies dizziness Cardiovascular: Cardiovascular: Reports no additional cardiovascular complaints, Denies chest pain, Denies lightheadedness, Denies Loss of Consciousness and Denies dyspnea Respiratory: Respiratory: Reports no additional respiratory complaints, Reports cough and Denies dyspnea Gastrointestinal: Gastrointestinal: Reports no additional gastrointestinal c omplaints, Denies abdominal pain, Denies melena, Denies hematochezia, Denies change in bowel habits and Denies change in stool character Genitourinary: Genitourinary: Denies hematuria, Denies urinary frequency, Denies dysuria, Denies urinary incontinence, Denies urinary hesitancy and Denies urinary urgency Musculoskeletal: Musculoskeletal: Reports no additional musculoskeletal complaints, Denies numbness and Denies tingling Neurologic: Denies dizziness, Denies loss of vision, Denies numbness and Denies tingling Psychiatric: Psychiatric: Reports no additional psychiatric complaints Endocrine: Endocrine: Reports no additional endocrine complaints Hematologic/Lymphatic: Hematologic/Lymphatic: Reports no additional hematologic/lymphatic complaints Allergic/Immunologic: Allergic/Immunologic: Reports no additional allergic/immunologic complaints [facility] Past Medical History Attestation statement: The following information was validated with the patient. Source: old records reviewed and nursing notes reviewed Medical History Cervical cancer screening Upper respiratory tract infection Breast cancer screening Colon cancer screening Obesity (BMI 30-39.9) Menopausal symptoms Annual physical exam Vitamin D deficiency ASCUS with positive high risk HPV cervical Benign essential hypertension Hidradenitis Mixed hyperlipidemia Surgical History History of removal of cyst (~08/11/23) History of removal of cyst (~2014) History of cholecystectomy History of tubal ligation (~1994) Family History Family History Father Emphysema lung Diabetes Myocardial infarction Mother Hypertension TIA (transient ischemic attack) Maternal Uncle Colon cancer Bladder cancer Sister Medley syndrome Endometriosis Abdominal malignancy Brother Leukemia Social History Social History Housing: Apartment Are you a primary personal care worker to a significant other at home: Yes (parent w/alzheimers) Do you presently have visiting nurse or other home services: No Alcohol intake: never Patient Tobacco Use Status: Current everyday Tobacco user Tobacco use type: Cigarette Cigarette Packs Per Day: 1 Cigarettes Per Day: 20.0 e-Cigarette/Vaping Use: Never Used Second Hand Smoke Exposure: Yes Advance Directives: No Advance Directives Information Provided: Yes Do you have a plan to hurt others: No Plan service: No Current occupational status: employed Cognitive needs: No Hearing needs: No Vision needs: No Physical Exam ED Vital Signs: Vital Signs - 24 hr 06/09/24 08:06 06/09/24 11:27 Temperature 97.3 F 97.3 F Pulse Rate 81 81 Respiratory Rate 18 18 Blood Pressure 161/79 H 161/79 H Pulse Oximetry 99 99 Oxygen Delivery Method Room Air Room Air BMI result Body Mass Index 40.3 Const General: cooperative, no acute distress, alert and awake Nutritional Appearance: well nourished Orientation/consciousness: patient oriented x3 Limitations: no limitations HENMT Head: Yes normal to inspection and Yes atraumatic Ears: hearing grossly normal bilaterally and external ears normal General nose exam: Normal external nose present, no nasal discharge noted and no epistaxis Face and sinus: Yes normal facial exam, No abrasion and No laceration Mouth: Normal oral and palatal mucosa present, no drooling and no muffled voice Eyes General: appearance normal, both eyes and all related structures Periorbital: periorbital findings normal Eyelids: Yes eyelids normal Conjunctivae: conjunctivae normal Pupils: Equal, round and reactive pupils present EOM: EOMs intact bilaterally Neck Neck: Yes normal visual inspection, Yes full ROM and Yes no lymphadenopathy Chest Chest palpation & inspection: normal inspection of the chest Resp Effort & Inspection: normal respiratory effort and able to speak in complete sentences GI Inspection: Yes normal to inspection Neuro General: patient oriented x3, moves all extremities and CN's II-XI intact bilaterally Cranial nerves: Yes Equal, round and reactive pupils present Cognition (Neuro): normal cognition Extrem General: Yes normal to inspection, Yes full ROM and Yes capillary refill normal Psych Appearance: grossly normal Mental Status: mental status grossly normal Affect: normal affect Attitude: cooperative Thought process: Normal thought process present Thought content: Normal thought content present Insight: Good insight present (Psych) Medical Decision Making Medical Decision Making [facility] Narrative: Patient is a 54 year old assigned female at with a history of HTN, HLD, and tobacco use presenting to the emergency department today with a cough. Patient's physical exam was unremarkable. Patient's chest x-ray showed no acute process. Patient's COVID-19, influenza, and RSV testing was negative. I explained my physical exam findings as well as all test results to the patient. I answered all questions asked by the patient. I stressed the importance of the patient taking her medication as directed (either prescribed or as the over the counter packaging recommends). I stressed the importance of the patient following up with her primary care provider. I stressed the importance of the patient returning to the emergency department immediately if her symptoms were to worsen or if she were to develop any dizziness, shortness of breath, difficulty breathing, chest pain, blurry vision, loss of vision, nausea, vomiting, abdominal pain, fever, chills, back pain, or any other complaints. Patient verbalized agreement and understanding with this treatment plan and discharge. Differential Diagnosis Differential Diagnoses: The differential diagnosis associated with the presentation includes Post viral cough Cough Bronchitis Influenza RSV PNA Admission/Observation Consideration of admission/observation: Escalation of care including admission/observation considered Patient would have been admitted to the hospital had her work up had any findings where hospital admission was appropriate and her clinical presentation warranted hospital admission. Lab Data [facility] Lab Attestation statement: I reviewed the patient's lab results. My interpretation of these results are in the [facility] Rationale portion of this note. Labs: Lab Results 06/09/24 Range/Units 08:14 Influenza Type A (PCR) NEGATIVE (Negative) Influenza Type B (PCR) NEGATIVE (Negative) RSV RNA Qual (PCR) NEGATIVE (Negative) SARS-CoV-2 RNA (RT-PCR) NEGATIVE (Negative) S. pyogenes GrpA YOHANNES Negative (Negative) Independent Interpretation I performed an independent interpretation of an: Plain X-Ray Interpretation: My interpretation is in agreement with the radiologist's impression of this imaging study. EXAMINATION: XR CHEST 2 VIEWS HISTORY: cough COMPARISON: Comparison is made with the prior examination dated 06/10/2023. FINDINGS: PA and lateral views of the chest are submitted. The lungs are expanded and clear. There is no pleural effusion, pneumothorax, or pulmonary vascular congestion. The heart is normal in size. The bones are intact. XR/XR chest 2V IMPRESSION: No acute cardiopulmonary abnormality. Electronically signed by: Eldon Cabrera MD 06/09/2024 11:11 AM EST Dictated By: Eldon Cabrera MD Signed By: Electronically signed by Eldon Cabrera MD 06/09/24 1111 Radiology Impression Discussion of test interpretation with radiology: I have reviewed the radiologist's reading. Discharge Plan Discharge Clinical Impression: Cough Patient Disposition: Home, Self-Care Instructions: Acute Cough (ED) Additional Instructions: Follow up with your primary care provider. Return to the emergency department immediately if your symptoms worsen or if you develop any dizziness, shortness of breath, difficulty breathing, chest pain, blurry vision, loss of vision, nausea, vomiting, abdominal pain, fever, chills, back pain, or any other complaints. Prescriptions: New prednisone 20 mg tablet 20 mg PO DAILY 7 Days Qty: 7 0RF albuterol sulfate 90 mcg/actuation HFA aerosol inhaler 1 puff inhalation QID PRN (Reason: shortness of breath or wheezing) Qty: 8.5 0RF No Action trazodone 50 mg tablet 50 mg PO BEDTIME PRN (Reason: sleep) 30 Days Qty: 30 2RF cholecalciferol (vitamin D3) 50 mcg (2,000 unit) capsule 50 mcg PO DAILY 90 Days Qty: 90 3RF pravastatin 40 mg tablet 40 mg PO BEDTIME 90 Days Qty: 90 1RF doxycycline monohydrate 100 mg capsule 100 mg PO BID 3 Days Qty: 6 0RF phenazopyridine [Pyridium] 200 mg tablet 200 mg PO BID PRN (Reason: burning or pain with urination) Qty: 10 0RF Rx Instructions: take with food nystatin 100,000 unit/gram powder 1 appl topical TID 10 Days Qty: 60 3RF Referrals: Joe Small MD [Primary Care Provider] - Stand Alone Forms: Work/School Release Interventions: ED Discharge Assessment Last Done: 06/09/24 11:27 Discharge Date/Time: 06/09/24 11:28 Print Language: Israeli
[2024-06-09 11:27] VITALS: BP 161/79; PULSE 81; RESP 18; TEMP 36.3; O2SAT 99
== END 2024-06-09 11:28 | disposition home or self-care (01) ==
PROVIDERS: Emergency Provider Emergency Medicine Emergency Medical Services; PCP Internal Medicine
DX: R05.9 Cough, unspecified (principal); F17.210 Nicotine dependence, cigarettes, uncomplicated; I10 Essential (primary) hypertension; Z79.899 Other long term (current) drug therapy; Z03.818 Encounter for observation for suspected exposure to other biological agents ruled out
CPT/HCPCS: 0241U; 71046; 87651; 99282; 99283

== ENCOUNTER → 2024-06-09 10:06 | Outpatient (BNV) | payer OTHER, SELFPAY | PROVIDERS: Emergency Provider Emergency Medicine Emergency Medical Services; PCP Internal Medicine; Visit Provider Radiology Diagnostic Radiology | DX: R05.9 Cough, unspecified (principal) | CPT/HCPCS: 71046 ==

== ENCOUNTER 2024-11-08 08:59 | Outpatient (REF) | payer OTHER, SELFPAY ==
[2024-11-08 09:10] LABS: MANUAL DIFF FLAG NO
[2024-11-08 09:43] LABS: Hematocrit 42.7 % (37.0-47.0); Hemoglobin 14.1 g/dl (12.0-16.0); Imm Gran Abs Auto 0.03 X10*3/uL (0.00-0.03); Imm Gran Pct Auto 0.4 % (0.0-0.4); Lymphocytes Absolute Auto 2.3 X10*3/uL (1.2-4.9); Mean Corpuscular HGB Conc 33.0 g/dl (31.0-35.0); Mean Corpuscular Hemoglobin 29.6 pg (27.0-33.0); Mean Corpuscular Volume 89.7 fL (80.0-98.0); NRBC Abs Auto 0.000 X10*3/uL (0.0-0.012); NRBC Pct Auto 0.0 /100WBC (0.0-0.2); Platelet Count 247 X10*3/uL (160-400); Red Blood Count 4.76 X10*6/uL (4.20-5.50); White Blood Count 7.9 X10*3/uL (4.8-10.8)
[2024-11-08 10:19] LABS: Appearance Urine Clear; Glucose Urine UA Negative (Negative); PH 6.5 (5.0-9.0); Specific Gravity - Urine <= 1.005 (1.005-1.025); UMIC TRIGGER UACC YES
[2024-11-08 10:21] LABS: Alanine Aminotransferase 16 U/L (0-31); Albumin Level 4.0 g/dL (3.5-5.0); Anion Gap 13 (12-20); Aspartate Amino Transferase 19 U/L (5-31); Blood Urea Nitrogen 15 mg/dL (9-16); Calcium 9.2 mg/dL (8.4-10.2); Carbon Dioxide 26 mmol/L (22-29); Chloride 104 mmol/L (96-108); Estimated Glomerular Filt Rate > 60; Potassium 4.1 mmol/L (3.3-5.1); Sodium 139 mmol/L (135-145); Total Protein 7.4 g/dL (6.5-8.0)
[2024-11-08 10:22] LABS: Alkaline Phosphatase 70 U/L (39-117); Cholesterol 305 mg/dL (<200); HDL Cholesterol 39 mg/dL (>40); Triglycerides 747 mg/dL (<150)
[2024-11-08 11:32] LABS: Free T4 (Free Thyroxine) 0.78 ng/dL (0.71-1.85)
== END 2024-11-08 09:00 | disposition home or self-care (01) ==
LOC: HO.LAB 08:59
PROVIDERS: PCP Internal Medicine; Visit Provider Internal Medicine
DX: Z00.00 Encounter for general adult medical examination without abnormal findings (principal); D64.9 Anemia, unspecified; E55.9 Vitamin D deficiency, unspecified; E78.00 Pure hypercholesterolemia, unspecified
CPT/HCPCS: 36415; 80053; 80061; 81001; 81003; 82306; 84439; 84443; 85025

== ENCOUNTER 2024-11-11 16:40 | Outpatient (AMB) | payer OTHER, SELFPAY ==
[2024-11-11 16:43] VITALS: BP 126/78; PULSE 95; O2SAT 96; BMI 42.2
--- NOTE | 2024-11-11 16:43 | MHC.PC.OV ---
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: No Accompanied by: Self / Same As Patient Allergies No Known Allergies Allergy (Mild, Verified 11/11/24 17:06) N/A Medication List - Last Reconciled 11/11/24 by Joe Small MD albuterol sulfate 90 mcg/actuation 1 puff inhalation QID PRN cholecalciferol (vitamin D3) 50 mcg PO DAILY 90 days pravastatin 40 mg PO BEDTIME 90 days Tobacco use date assessed: 11/11/24 Dental Screening Dental Screen Date: 11/11/24 Did you have a dental visit in the last 12 months?: No Did you have a dental problem in the last 6 months where you did not have access to dental care?: No Was dental information given to patient?: No HPI PE HPI Details Patient comes in today for annual physical examination - she has not been seen since June 2023 States that she is breaking out again in a large recurrent, draining cyst on her scalp and would like to have this addressed again by surgery Relates that she had a similar cyst a few years back and had Dr. No remove it surgically Adds that she is also breaking out again in a recurrent itchy rash under her breasts and would like to have something to help clear this up She is also requesting for a prescription for some Chantix to help her quit smoking Also needs her albuterol Rx refilled She denies any headaches or dizziness Denies any chest pains, no shortness of breath No nausea/vomiting, no abdominal pain No change in bowel habits noted She denies any acute urinary symptoms She had her follow-up labs done a few days ago - to discuss her results She is currently overdue for all of her cancer screenings and has never had a screening colonoscopy done in the past She has an appointment with Dr. Gutierres for her yearly gynecology exam at the end of this month [facility]LY [facility], [facility] Medical History (Updated 11/13/24 @ 21:10 by Joe Small MD) Colon cancer screening Morbid obesity with BMI of 40.0-44.9, adult Obesity (BMI 30-39.9) Acquired hypothyroidism Annual physical exam Cervical cancer screening Upper respiratory tract infection Breast cancer screening Menopausal symptoms Vitamin D deficiency ASCUS with positive high risk HPV cervical Benign essential hypertension Hidradenitis Mixed hyperlipidemia Surgical History History of removal of cyst (~08/11/23) History of removal of cyst (~2014) History of cholecystectomy History of tubal ligation (~1994) Family History Father Emphysema lung Diabetes Myocardial infarction Mother Hypertension TIA (transient ischemic attack) Maternal Uncle Colon cancer Bladder cancer Sister Medley syndrome Endometriosis Abdominal malignancy Brother Leukemia Social History Housing: Apartment Are you a primary healthcare administration intern to a significant other at home: Yes (parent w/alzheimers) Do you presently have visiting nurse or other home services: No Alcohol intake: never Patient Tobacco Use Status: Current everyday Tobacco user Tobacco use type: Cigarette Cigarette Packs Per Day: 1 Cigarettes Per Day: 20.0 e-Cigarette/Vaping Use: Never Used Second Hand Smoke Exposure: Yes service: No Current occupational status: employed Cognitive needs: No Hearing needs: No Vision needs: No Female Reproductive History Menstrual Age of Menarche: 17 Questionnaire PHQ-9 Over the last 2 weeks, how often have you been bothered by any of the following problems? 1. Little interest or pleasure in doing things: not at all 2. Feeling down, depressed, or hopeless: not at all 3. Trouble falling or staying asleep, or sleeping too much: more than half the days 4. Feeling tired or having little energy: several days 5. Poor appetite or overeating: not at all 6. Feeling bad about yourself - or that you are a failure or have let yourself or your family down: not at all 7. Trouble concentrating on things, such as reading the newspaper or watching television: not at all 8. Moving or speaking so slowly that other people could have noticed. Or the opposite - being so fidgety or restless that you have been moving around a lot more than usual: not at all 9. Thoughts that you would be better off or of hurting yourself in some way: not at all Total score: 3 Depression Screening Interpretation: Positive Depression Screening Follow-up: Follow-up Visit Requested Depression Screening Done: Yes 50512 - PHQ-9 Billing: Yes Source: Developed by Drs. Eldon Harper, Vanna Ríos, Mikey Anderson and colleagues, with an educational pete from [employer]. Thrive Questionnaire Date Thrive assessed: 11/11/24 I am a: Patient What is your living situation today?: I have a steady place to live Within the past 12 months, did the food you bought not last and you didn't have the money to get more?: Never true Within the past 12 months, did you worry whether your food would run out before you got money to buy more?: Never true Do you have trouble paying for medicines?: No Do you have trouble getting transportation to medical appointments?: No Do you have trouble paying your heating and electricity bill?: No Do you have trouble taking care of your child, family member or friend?: No Do you have trouble with day-to-day activities such as bathing, preparing meals, shopping, managing finances, etc.?: No Are you currently unemployed and looking for a job?: No Are you interested in more education?: No Please select the resources that you would like help with: None Currently or been in a relationship where the following occur: No concerns reported THRIVE Score: 0 AUDIT C Alcohol Use Questionnaire (AUDIT-C) 1. How often do you have a drink containing alcohol?: Monthly or less 2. How many drinks containing alcohol do you have on a typical day when you are drinking?: 1 or 2 3. How often do you have six or more drinks on one occasion?: Never Total Score: 1 Score Reviewed/Action Taken: Yes FABIO-7 AMB Questionnaire FABIO-7 Date FAIBO - 7 assessed: 11/11/24 Feeling nervous, anxious, or on edge: 3 = Nearly every day Not being able to stop or control worryin = More than half the days Worrying too much about different things: 3 = Nearly every day Trouble relaxin = Several days Being so restless that it is hard to sit still: 2 = More than half the days Becoming easily annoyed or irritable: 3 = Nearly every day Feeling afraid as if something awful might happen: 0 = Not at all Total FABIO-7 score (0-4 normal; 5-9 mild; 10-14 moderate; 15-21 severe): 14 Source: Developed by Drs. Eldon Harper, Vanna Ríos, Mikey Anderson and colleagues, with an educational pete from [employer]. Review of Systems Const Denies chills, Denies fatigue, Denies fever(s), Denies headache(s) and Denies malaise Eyes Denies blurry vision, Denies change in vision, Denies irritation and Denies itchy eyes ENT Denies dysphagia, Denies dizziness, Denies otalgia, Denies headache(s), Denies nasal congestion, Denies neck pain, Denies odynophagia, Denies sinus pain and Denies sore throat Card Denies chest pain, Denies rapid heart rate, Denies irregular heart rhythm, Denies palpitations and Denies dyspnea Resp Denies chest congestion, Denies cough, Denies dyspnea and Denies wheezing GI Denies abdominal pain, Denies bloating, Denies constipation, Denies dysphagia, Denies heartburn, Denies diarrhea, Denies nausea, Denies odynophagia and Denies vomiting Denies hematuria, Denies urinary frequency, Denies dysuria, Denies urinary incontinence and Denies urinary urgency Musc Denies back pain, Denies arthralgias, Denies joint swelling, Denies muscle weakness and Denies neck pain Skin/Breast Details: (+) recurrent irritated/itchy rash under the breasts; (+) large, draining cyst on the scalp Denies breast pain, Denies breast mass, Denies change in pigmentation and Denies unusual bruising Neuro Denies dizziness, Denies headache(s) and Denies paresthesias Psych Denies anxiety and Denies depression Endo Denies fatigue and Denies palpitations Darrin/Lymph Denies easy bruising Aller/Immun Denies itchy eyes and Denies wheezing Physical exam (Primary Care) Vital Signs: Last Vital Signs Pulse 95 11/11/24 16:43 BP 126/78 11/11/24 16:43 Pulse Ox 96 11/11/24 16:43 Oxygen Delivery Method Room Air 11/11/24 16:43 BMI result Body Mass Index 42.2 Tobacco/Smoking Status: Tobacco use Status Tobacco use date assessed 11/11/24 11/11/24 16:48 Patient Tobacco Use Status Current everyday Tobacco 11/11/24 16:48 Tobacco use type Cigarette 11/11/24 16:48 e-Cigarette/Vaping Use Never Used 11/11/24 16:48 PHQ-9: PHQ-9 Score PHQ-9: Total score 3 11/11/24 17:19 Depression Screening Interpretation: Positive Depression Screening Follow-up: Follow-up Visit Requested Thrive Assessment: Date of Thrive Assessment Date Thrive assessed 11/11/24 11/11/24 16:48 Currently or been in a relationship where the following occur: No concerns reported Const General: no acute distress, alert and awake Orientation/consciousness: patient oriented x3 HENMT Head: Yes normocephalic and Yes atraumatic Ears: external ears normal, TM's normal bilaterally and EAC's normal General nose exam: No nasal discharge present Face and sinus: Yes normal facial exam and Yes sinuses nontender Teeth and gingiva: dentition normal Throat: Yes posterior oropharynx normal and Yes tonsils normal (no TP congestion) Eyes Eyelids: Yes eyelids normal Conjunctivae: conjunctivae normal Pupils: Equal, round and reactive pupils present EOM: EOMs intact bilaterally Neck Neck: Yes no lymphadenopathy and Yes supple Thyroid: Thyroid normal Resp Auscultation: clear to auscultation bilaterally, no rales and no wheezes Cardio Rate: regular rate Rhythm: regular rhythm Heart sounds: no murmurs GI Palpation (GI): Soft to palpation, nontender and No hepatosplenomegaly present Auscultation: normal bowel sounds General: Yes no CVA tenderness Back/Spine/Pelvis Back: no CVA tenderness Thoracic/Lumbar Spine: thoracic and lumbar spine normal to inspection Skin Other: (+) patchy erythematous rash under the folds of the breasts bilaterally; (+) large, unroofed, draining cyst on the parieto-occipital scalp Neuro General: patient oriented x3, moves all extremities, no focal motor deficits and CN's II-XI intact bilaterally Cranial nerves: Yes Equal, round and reactive pupils present Cognition (Neuro): normal cognition Gait exam (Neuro): Normal gait present Extrem General: Yes no clubbing, cyanosis or edema Results Reviewed Results Reviewed: Laboratory Tests 02/18/23 11/08/24 11/08/24 09:59 09:04 09:09 WBC 8.5 7.9 Hgb 13.9 14.1 Hct 42.9 42.7 Plt Count 323 247 Sodium 138 139 Potassium 4.2 4.1 Creatinine 0.79 0.82 Estimated GFR > 60 > 60 Fasting Glucose 98 93 Calcium 9.8 9.2 AST 17 19 ALT 14 16 Triglycerides 747 H Cholesterol 305 H LDL Cholesterol, Calc TNP HDL Cholesterol 39 L 25-OH Vitamin D Total 32.1 TSH 9.24 H Free T4 0.78 Ur Specific Wilson <= 1.005 Urine Protein Negative Urine Glucose (UA) Negative Urine Blood Small (1+) H Urine Nitrite Negative Ur Leukocyte Esterase Trace H Coding Level of Care Code Est Pt Prev Care 40-64y(34989) Diagnoses Annual physical exam Z00.00 Benign essential hypertension I10 Mixed hyperlipidemia E78.2 Acquired hypothyroidism E03.9 Vitamin D deficiency E55.9 Pilar cyst of scalp L72.11 Candidal intertrigo B37.2 Insomnia, unspecified type G47.00 Insomnia type: unspecified Smoker F17.200 Morbid obesity with BMI of 40.0-44.9, adult E66.01; Z68.41 Breast cancer screening by mammogram Z12.31 Colon cancer screening Z12.11 Additional Codes PHQ-9 - 09052 - PHQ-9 Billing: Yes ([id number]) Assessment & Plan Assessment & Plan (1) Annual physical exam: Code(s): Z00.00 - Encounter for general adult medical examination without abnormal findings Category: Medical Plan: Results of her labs done a few days ago reviewed and discussed with patient She is currently overdue for all of her cancer screenings and has never had a screening colonoscopy done in the past She has an appointment with Dr. Gutierres for her yearly gynecology exam at the end of this month (2) Benign essential hypertension: Code(s): I10 - Essential (primary) hypertension Category: Medical Plan: Reinforced low sodium diet She used to take Lisinopril 10 mg QD for high blood pressure but stopped taking this about 2 to 3 years ago Patient states that her blood pressure has been doing well so far since she stopped taking her BP med Have reminded patient again to continue monitoring her blood pressure regularly, and systolic blood pressure should be at 120 mm or less to be considered normal (3) Mixed hyperlipidemia: Code(s): E78.2 - Mixed hyperlipidemia Category: Medical Plan: Patient is cautioned that her triglyceride level has increased significantly from previous on her recent labs in his now at 757 mg/dL Her total cholesterol level has also gone up to 305 mg/dL; LDL cholesterol is unable to be calculated due to her serum triglyceride being over 400 mg/dL Reinforce low-cholesterol diet Continue Pravastatin 40 mg QD We will start patient additionally on Fenofibrate 160 mg QD Will have patient recheck her labs and fasting lipids in 3 months for follow up (4) Acquired hypothyroidism: Code(s): E03.9 - Hypothyroidism, unspecified Category: Medical Plan: Patient is advised that based on her recent TFTs, she is now considered hypothyroid and will need to start taking thyroid hormone supplement Will start her on Levothyroxine 25 mcg QD Will recheck her TFTs in 3 months for follow up (5) Vitamin D deficiency: Code(s): E55.9 - Vitamin D deficiency, unspecified Category: Medical Plan: Continue Vitamin D3 2000 units QD (6) Pilar cyst of scalp: Code(s): L72.11 - Pilar cyst Category: Medical Plan: Will refer patient back to surgery for consideration for surgical excision of her recurrent pilar scalp cyst Will start patient in the meantime empirically on Doxycycline 100 mg BID x 7 days (7) Candidal intertrigo: Code(s): B37.2 - Candidiasis of skin and nail Category: Medical Plan: Will start patient again on Nystatin powder [id number] units/gm apply to rash TID (8) Insomnia: Code(s): G47.00 - Insomnia, unspecified Category: Medical Qualifiers: Insomnia type: unspecified Qualified Code(s): G47.00 - Insomnia, unspecified Plan: Sleep hygiene reinforced (9) Smoker: Code(s): F17.200 - Nicotine dependence, unspecified, uncomplicated Category: Social Hx Plan: Patient is counseled again on complete smoking cessation Per her request, we will start her again on varenicline to help her quit smoking (10) Morbid obesity with BMI of 40.0-44.9, adult: Code(s): E66.01 - Morbid (severe) obesity due to excess calories; Z68.41 - Body mass index [BMI] 40.0-44.9, adult Category: Medical Plan: Reinforced diet/exercise as tolerated/lose weight (11) Breast cancer screening by mammogram: Code(s): Z12.31 - Encounter for screening mammogram for malignant neoplasm of breast Category: Medical Plan: Will send patient for her annual mammogram (12) Colon cancer screening: Code(s): Z12.11 - Encounter for screening for malignant neoplasm of colon Category: Medical Plan: Will refer patient to GI for her screening colonoscopy Plan Follow up in 3 months Orders: Orders Comprehensive [place]. Panel Fast 3 Months E78.00 - Pure hypercholesterolemia, unspecified Thyroid Stimulating Hormone 3 Months E03.9 - Hypothyroidism, unspecified Free T4 (Free Thyroxine) 3 Months E03.9 - Hypothyroidism, unspecified MM tomosynthesis screening BI 11/11/24 Z12.31 - Encounter for screening mammogram for malignant neoplasm of breast Complete Blood Count Auto Diff 3 Months D64.9 - Anemia, unspecified Lipid Panel 3 Months E78.00 - Pure hypercholesterolemia, unspecified UA CC w/rflx Micro + Cult 3 Months R30.0 - Dysuria Vitamin D 25-OH Total 3 Months E55.9 - Vitamin D deficiency, unspecified Referrals Gastroenterology Referral Z12.11 - Encounter for screening for malignant neoplasm of colon General Surgery Referral L72.11 - Pilar cyst Medications: New doxycycline hyclate 100 mg PO BID 14 caps 0RF 7 days nystatin (Nystop) 1 appl topical TID 60 grams 1RF varenicline tartrate administer on days 1, 2, and 3 of therapy 0.5 mg PO DAILY 3 tabs 0RF 3 days levothyroxine (Levoxyl) Take on an empty stomach first thing in the morning with a glass of water; DO NOT TAKE OR DRINK ANYTHING ELSE afterwards for the next 30 minutes 25 mcg PO DAILY 90 tabs 1RF 90 days fenofibrate 160 mg PO DAILY 90 tabs 1RF 90 days varenicline tartrate administer on days 4, 5, and 6 of therapy 0.5 mg PO BID 6 tabs 0RF 3 days varenicline tartrate 1 mg PO BID 56 tabs 3RF 28 days Refilled albuterol sulfate 90 mcg/actuation 1 puff inhalation QID PRN 8.5 grams 3RF shortness of breath or wheezing
== END 2024-11-11 17:22 | disposition home or self-care (01) ==
LOC: HO.HMCH 16:41
PROVIDERS: PCP Internal Medicine; Visit Provider Internal Medicine
DX: Z00.00 Encounter for general adult medical examination without abnormal findings (principal); I10 Essential (primary) hypertension; E66.01 Morbid (severe) obesity due to excess calories; Z68.41 Body mass index [BMI] 40.0-44.9, adult; E78.2 Mixed hyperlipidemia; E03.9 Hypothyroidism, unspecified; E55.9 Vitamin D deficiency, unspecified; L72.11 Pilar cyst; B37.2 Candidiasis of skin and nail; G47.00 Insomnia, unspecified; F17.200 Nicotine dependence, unspecified, uncomplicated; Z12.31 Encounter for screening mammogram for malignant neoplasm of breast

== ENCOUNTER → 2024-11-11 16:40 | Outpatient (BNVA) | payer OTHER, SELFPAY | PROVIDERS: PCP Internal Medicine; Visit Provider Internal Medicine | DX: Z00.00 Encounter for general adult medical examination without abnormal findings (principal); I10 Essential (primary) hypertension; E78.2 Mixed hyperlipidemia; E03.9 Hypothyroidism, unspecified; E55.9 Vitamin D deficiency, unspecified; L72.11 Pilar cyst; B37.2 Candidiasis of skin and nail; G47.00 Insomnia, unspecified; E66.01 Morbid (severe) obesity due to excess calories; Z68.41 Body mass index [BMI] 40.0-44.9, adult; F17.210 Nicotine dependence, cigarettes, uncomplicated; Z79.899 Other long term (current) drug therapy; Z13.31 Encounter for screening for depression; Z13.39 Encounter for screening examination for other mental health and behavioral disorders | CPT/HCPCS: 96127; 99396 ==

== ENCOUNTER 2024-12-09 11:24 | Outpatient (REF) | payer OTHER, SELFPAY ==
--- NOTE | ~2024-12-09 | MM_ITS ---
EXAMINATION: MM SCREENING DIGITAL BREAST TOMOSYNTHESIS, BILATERAL CLINICAL INFORMATION: Screening. Asymptomatic. COMPARISON: Comparison made to multiple prior, most recent April 14, 2023, and most remote July 15, 2016. TECHNIQUE: Digital breast tomosynthesis is performed in both the craniocaudal and mediolateral oblique views along with computer-aided detection (CAD). FINDINGS: BREAST COMPOSITION: There are scattered areas of fibroglandular density (ACR BI-RADS breast composition Category b). BILATERAL BREASTS: No significant masses, suspicious calcifications or other abnormalities are seen in either breast. MM/MM tomosynthesis screening BI IMPRESSION: BILATERAL BREASTS: Negative, no mammographic evidence of malignancy. Normal interval follow-up is recommended in 12 months. ASSESSMENT: BI-RADS 1 - Negative RECOMMENDATION: Routine annual mammography screening. FOLLOW-UP: 1 year F/U This examination should not preclude the clinical evaluation of a suspicious palpable abnormality. This patient's information was entered into a reminder system with a target due date for their next mammogram. Electronically signed by: Radha Davis MD 12/13/2024 01:47 PM EDT
== END 2024-12-09 11:25 | disposition home or self-care (01) ==
LOC: HO.MAMMO 11:24
PROVIDERS: PCP Internal Medicine; Visit Provider Internal Medicine
DX: Z12.31 Encounter for screening mammogram for malignant neoplasm of breast (principal)
CPT/HCPCS: 77063; 77067

== ENCOUNTER → 2024-12-09 11:45 | Outpatient (BNV) | payer OTHER, SELFPAY | PROVIDERS: PCP Internal Medicine; Visit Provider Radiology Body Imaging | DX: Z12.31 Encounter for screening mammogram for malignant neoplasm of breast (principal) | CPT/HCPCS: 77063; 77067 ==

== ENCOUNTER 2024-12-14 12:55 | Outpatient (AMB) | payer OTHER, SELFPAY ==
--- NOTE | 2024-12-14 12:59 | A.OFFVIS_ITS ---
Vital Signs 12/14/24 13:07 Height 5 ft 2 in Weight 233 lb BMI 42.6 BP 108/66 Blood Pressure Location Rt brachial Position Sitting Pulse 88 Intake Visit Reasons: Pilar cyst Intake Note: Patient here c/o pilar cyst on scalp that keeps re-occurring. Last excised about 1.5yr ago. Patient c/o: itchy. Denies tenderness. Pesticide Use Medical Coordinator Required: No Accompanied by: daughter Sanjuana Allergies No Known Allergies Allergy (Mild, Verified 12/14/24 13:05) N/A Medication List - Last Reconciled 12/14/24 by Maxime No MD albuterol sulfate 90 mcg/actuation 1 puff inhalation QID PRN cholecalciferol (vitamin D3) 50 mcg PO DAILY 90 days fenofibrate 160 mg PO DAILY 90 days levothyroxine (Levoxyl) 25 mcg PO DAILY 90 days nystatin (Nystop) 1 appl topical TID pravastatin 40 mg PO BEDTIME 90 days varenicline tartrate 0.5 mg PO DAILY 3 days varenicline tartrate 0.5 mg PO BID 3 days varenicline tartrate 1 mg PO BID 28 days HPI HPI Pilar cyst: Details: She is known to me because of the history of scalp cysts which I had removed in the past She has another scalp cysts on the occipital area. She wants this excised. She says that this has bothering her with discomfort. [facility] Medical History (Updated 12/14/24 @ 13:18 by Maxime No MD) Scalp cyst Colon cancer screening Morbid obesity with BMI of 40.0-44.9, adult Obesity (BMI 30-39.9) Acquired hypothyroidism Annual physical exam Cervical cancer screening Upper respiratory tract infection Breast cancer screening Menopausal symptoms Vitamin D deficiency ASCUS with positive high risk HPV cervical Benign essential hypertension Hidradenitis Mixed hyperlipidemia Surgical History History of removal of cyst (~08/11/23) History of removal of cyst (~2014) History of cholecystectomy History of tubal ligation (~1994) Family History Father Emphysema lung Diabetes Myocardial infarction Mother Hypertension TIA (transient ischemic attack) Maternal Uncle Colon cancer Bladder cancer Sister Medley syndrome Endometriosis Abdominal malignancy Brother Leukemia Social History Housing: Apartment Are you a primary critical care nurse to a significant other at home: Yes (parent w/alzheimers) Do you presently have visiting nurse or other home services: No Alcohol intake: never Patient Tobacco Use Status: Current everyday Tobacco user Tobacco use type: Cigarette Cigarette Packs Per Day: 1 Cigarettes Per Day: 20.0 e-Cigarette/Vaping Use: Never Used Second Hand Smoke Exposure: Yes service: No Current occupational status: employed Cognitive needs: No Hearing needs: No Vision needs: No Female Reproductive History Menstrual Age of Menarche: 17 Review of Systems Const Denies chills Card Denies chest pain, Denies dyspnea and Reports dyspnea on exertion Resp Denies cough, Denies dyspnea and Reports dyspnea on exertion GI Denies hematochezia and Denies change in bowel habits Denies hematuria Musc Denies back pain and Denies limited range of motion Neuro Denies focal weakness and Denies convulsions Psych Denies depression and Denies mood swings Physical Exam Vital Signs: Last Vital Signs Pulse 88 12/14/24 13:07 BP 108/66 12/14/24 13:07 BMI result Body Mass Index 42.6 Const Other: Morbidly obese General: comfortable HEENT Other: Scalp cyst, about 1 cm in size, mobile and well-defined Resp Effort & Inspection: normal respiratory effort Cardio Rate: regular rate GI Palpation (GI): Soft to palpation and nontender Assessment & Plan Assessment & Plan (1) Scalp cyst: Code(s): L72.9 - Follicular cyst of the skin and subcutaneous tissue, unspecified Category: Medical Plan: She wants this removed I explained the technique of excision under local anesthesia. I reviewed the risks, benefits, and alternatives and she had given consent This will be done on her next visit in the office under local anesthesia. Coding Level of Care Code Est Pt Level 3 (55275) Diagnoses Scalp cyst L72.9
[2024-12-14 13:07] VITALS: BP 108/66; PULSE 88; BMI 42.6
== END 2024-12-14 13:16 | disposition home or self-care (01) ==
LOC: HO.HGS 12:55
PROVIDERS: PCP Internal Medicine; Visit Provider Surgery
DX: L72.9 Follicular cyst of the skin and subcutaneous tissue, unspecified (principal)
CPT/HCPCS: 99213

== ENCOUNTER → 2024-12-14 12:55 | Outpatient (BNVA) | payer OTHER, SELFPAY | PROVIDERS: PCP Internal Medicine; Visit Provider Surgery | DX: L72.11 Pilar cyst (principal) | CPT/HCPCS: 99212 ==

== ENCOUNTER 2025-01-16 08:17 | Outpatient (REF) | payer OTHER, SELFPAY | END 2025-01-16 08:18 | disposition home or self-care (01) | LOC: HO.LNP 08:17 | PROVIDERS: PCP Internal Medicine; Visit Provider Surgery | DX: L72.11 Pilar cyst (principal); R22.0 Localized swelling, mass and lump, head | CPT/HCPCS: 11422; 88304 ==

== ENCOUNTER 2025-01-16 08:17 | Outpatient (AMB) | payer OTHER, SELFPAY ==
--- NOTE | 2025-01-16 08:19 | MHC.OFFVIS ---
Intake Visit Reasons: EXC~ Pilar cyst Intake Note: Excision pilar cyst. Slurry Control Tender Required: No Accompanied by: Other Relationship Allergies No Known Allergies Allergy (Mild, Verified 01/16/25 08:24) N/A Medication List - Last Reconciled 01/16/25 by Maxime No MD albuterol sulfate 90 mcg/actuation 1 puff inhalation QID PRN cholecalciferol (vitamin D3) 50 mcg PO DAILY 90 days fenofibrate 160 mg PO DAILY 90 days levothyroxine (Levoxyl) 25 mcg PO DAILY 90 days nystatin (Nystop) 1 appl topical TID pravastatin 40 mg PO BEDTIME 90 days varenicline tartrate 0.5 mg PO DAILY 3 days varenicline tartrate 0.5 mg PO BID 3 days varenicline tartrate 1 mg PO BID 28 days HPI HPI EXC~ Pilar cyst: Details: She is here for excision of a scalp cyst. [facility] Medical History Scalp cyst Colon cancer screening Morbid obesity with BMI of 40.0-44.9, adult Obesity (BMI 30-39.9) Acquired hypothyroidism Annual physical exam Cervical cancer screening Upper respiratory tract infection Breast cancer screening Menopausal symptoms Vitamin D deficiency ASCUS with positive high risk HPV cervical Benign essential hypertension Hidradenitis Mixed hyperlipidemia Surgical History History of removal of cyst (~08/11/23) History of removal of cyst (~2014) History of cholecystectomy History of tubal ligation (~1994) Family History Father Emphysema lung Diabetes Myocardial infarction Mother Hypertension TIA (transient ischemic attack) Maternal Uncle Colon cancer Bladder cancer Sister Medley syndrome Endometriosis Abdominal malignancy Brother Leukemia Social History Housing: Apartment Are you a primary medicare insurance specialist to a significant other at home: Yes (parent w/alzheimers) Do you presently have visiting nurse or other home services: No Alcohol intake: never Patient Tobacco Use Status: Current everyday Tobacco user Tobacco use type: Cigarette Cigarette Packs Per Day: 1 Cigarettes Per Day: 20.0 e-Cigarette/Vaping Use: Never Used Second Hand Smoke Exposure: Yes service: No Current occupational status: employed Cognitive needs: No Hearing needs: No Vision needs: No Female Reproductive History Menstrual Age of Menarche: 17 Office Procedures Excision Details: She was placed in prone position. The area of the scalp cyst on the occipital region was prepped and draped. Lidocaine 1% was used for local anesthesia. Made an elliptical incision in the skin surrounding this induration with a blade 15. This was carried down through the full-thickness of the skin and subcutaneous fat to excise this entire indurated area. This was about a 2 cm indurated area that was removed I closed the incision with full-thickness nylon 3-0 simple sutures. The procedure was completed. She tolerated procedure well. There were no immediate complications. There was minimal blood loss. [id number] scalp/neck/hands/feet/genitalia 1.1cm-2cm Procedure code (CPT) selection complete Assessment & Plan Assessment & Plan (1) Pilar cyst of scalp: Code(s): L72.11 - Pilar cyst Category: Medical Plan: Excision was done under local anesthesia. She was given wound care instructions. She will be seen in the office for removal of sutures. She can take Tylenol or ibuprofen p.r.n. for pain. Coding Level of Care Code Procedure Only Diagnoses Pilar cyst of scalp L72.11 CPT Codes Scalp/Neck/Hands/Feet/Genetalia - CPT: 60632-[id number] scalp/neck/hands/feet/genitalia 1.1cm-2cm ([id number])
== END 2025-01-16 08:49 | disposition home or self-care (01) ==
PROVIDERS: PCP Internal Medicine; Visit Provider Surgery
DX: L72.0 Epidermal cyst (principal)
CPT/HCPCS: 11422

== ENCOUNTER 2025-01-27 11:16 | Outpatient (AMB) | payer OTHER, SELFPAY ==
--- NOTE | 2025-01-27 11:17 | A.OFFVIS_ITS ---
Vital Signs 01/27/25 11:29 Height 5 ft 2 in Weight 230 lb BMI 42.1 BP 127/58 L Blood Pressure Location Rt radial Position Sitting Pulse 79 Intake Visit Reasons: s/p exc~ cyst scalp Intake Note: Patient here s/p cyst excision on posterior scalp. Patient c/o: tenderness, scabby. Denies bleeding, oozing. 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 She had excision of scalp cyst performed on 01/16/25 under local anesthesia in the office by Dr. No. She tolerated the procedure well. She has some mild residual tenderness. [facility] Medical History Scalp cyst Colon cancer screening Morbid obesity with BMI of 40.0-44.9, adult Obesity (BMI 30-39.9) Acquired hypothyroidism Annual physical exam Cervical cancer screening Upper respiratory tract infection Breast cancer screening Menopausal symptoms Vitamin D deficiency ASCUS with positive high risk HPV cervical Benign essential hypertension Hidradenitis Mixed hyperlipidemia Surgical History (Updated 01/27/25 @ 12:39 by Janet Roy PA-C) Hx of surgical procedure (01/16/25) History of removal of cyst (~08/11/23) History of removal of cyst (~2014) History of cholecystectomy History of tubal ligation (~1994) Family History Father Emphysema lung Diabetes Myocardial infarction Mother Hypertension TIA (transient ischemic attack) Maternal Uncle Colon cancer Bladder cancer Sister Medley syndrome Endometriosis Abdominal malignancy Brother Leukemia Social History Housing: Apartment Are you a primary healthcare economics consultant to a significant other at home: Yes (parent w/alzheimers) Do you presently have visiting nurse or other home services: No Alcohol intake: never Patient Tobacco Use Status: Current everyday Tobacco user Tobacco use type: Cigarette Cigarette Packs Per Day: 1 Cigarettes Per Day: 20.0 e-Cigarette/Vaping Use: Never Used Second Hand Smoke Exposure: Yes service: No Current occupational status: employed Cognitive needs: No Hearing needs: No Vision needs: No Female Reproductive History Menstrual Age of Menarche: 17 Physical Exam Vital Signs: Last Vital Signs Pulse 79 01/27/25 11:29 BP 127/58 L 01/27/25 11:29 BMI result Body Mass Index 42.1 Const General: comfortable, no acute distress and alert Orientation/consciousness: patient oriented x3 HEENT Other: posterior scalp excision site- sutures removed, excision site well approximated without surrounding erythema or edema, very mild induration, no drainage Resp Effort & Inspection: normal respiratory effort Skin General skin exam: no rashes or lesions noted Neuro General: patient oriented x3 and moves all extremities Results Reviewed Results Reviewed: Skin, posterior scalp, excision: Epidermal inclusion cyst, ruptured Assessment & Plan Assessment & Plan (1) History of excision of epidermal inclusion cyst: Code(s): Z98.890 - Other specified postprocedural states; Z87.2 - Personal history of diseases of the skin and subcutaneous tissue Category: Surgical Plan 54 year old female s/p excision of scalp cyst performed on 01/16/25 under local anesthesia. She tolerated the procedure well. Sutures were removed uneventfully today. The wound is well healed and well approximated without evidence of infection. She has no concerns. She can follow up as needed. Coding Level of Care Code Est Pt Level 3 (54121) Diagnoses History of excision of epidermal inclusion cyst Z98.890; Z87.2
[2025-01-27 11:29] VITALS: BP 127/58; PULSE 79; BMI 42.1
== END 2025-01-27 11:46 | disposition home or self-care (01) ==
LOC: HO.HGS 11:16
PROVIDERS: PCP Internal Medicine; Visit Provider Physician Assistant Surgical
DX: Z98.890 Other specified postprocedural states (principal); Z87.2 Personal history of diseases of the skin and subcutaneous tissue
CPT/HCPCS: 99213

== ENCOUNTER → 2025-01-27 11:16 | Outpatient (BNVA) | payer OTHER, SELFPAY | PROVIDERS: PCP Internal Medicine; Visit Provider Physician Assistant Surgical | DX: Z48.02 Encounter for removal of sutures (principal); Z98.890 Other specified postprocedural states; Z87.2 Personal history of diseases of the skin and subcutaneous tissue | CPT/HCPCS: 99212 ==

== ENCOUNTER 2025-03-06 14:31 | Outpatient (REF) | payer OTHER, SELFPAY ==
[2025-03-06 14:57] LABS: MANUAL DIFF FLAG NO
[2025-03-06 15:26] LABS: Hematocrit 40.9 % (37.0-47.0); Hemoglobin 13.3 g/dl (12.0-16.0); Imm Gran Abs Auto 0.04 X10*3/uL (0.00-0.03); Imm Gran Pct Auto 0.5 % (0.0-0.4); Lymphocytes Absolute Auto 2.6 X10*3/uL (1.2-4.9); Mean Corpuscular HGB Conc 32.5 g/dl (31.0-35.0); Mean Corpuscular Hemoglobin 28.8 pg (27.0-33.0); Mean Corpuscular Volume 88.5 fL (80.0-98.0); NRBC Abs Auto 0.000 X10*3/uL (0.0-0.012); NRBC Pct Auto 0.0 /100WBC (0.0-0.2); Platelet Count 297 X10*3/uL (160-400); Red Blood Count 4.62 X10*6/uL (4.20-5.50); White Blood Count 8.3 X10*3/uL (4.8-10.8)
[2025-03-06 15:56] LABS: Appearance Urine Clear; Glucose Urine UA Negative (Negative); PH 6.0 (5.0-9.0); Specific Gravity - Urine 1.020 (1.005-1.025); UMIC TRIGGER UACC YES
[2025-03-06 16:46] LABS: Alanine Aminotransferase 26 U/L (0-31); Albumin Level 4.2 g/dL (3.5-5.0); Alkaline Phosphatase 58 U/L (39-117); Anion Gap 14 (12-20); Aspartate Amino Transferase 31 U/L (5-31); Blood Urea Nitrogen 13 mg/dL (9-16); Calcium 9.6 mg/dL (8.4-10.2); Carbon Dioxide 24 mmol/L (22-29); Chloride 105 mmol/L (96-108); Cholesterol 240 mg/dL (<200); Estimated Glomerular Filt Rate > 60; HDL Cholesterol 42 mg/dL (>40); Potassium 4.1 mmol/L (3.3-5.1); Sodium 139 mmol/L (135-145); Total Protein 7.7 g/dL (6.5-8.0); Triglycerides 347 mg/dL (<150)
[2025-03-06 16:48] LABS: Free T4 (Free Thyroxine) 0.97 ng/dL (0.71-1.85); Thyroid Stimulating Hormone 5.89 uIU/mL (0.32-4.0)
== END 2025-03-06 14:32 | disposition home or self-care (01) ==
LOC: HO.LAB 14:31
PROVIDERS: PCP Internal Medicine; Visit Provider Internal Medicine
DX: E78.00 Pure hypercholesterolemia, unspecified (principal); E55.9 Vitamin D deficiency, unspecified; E03.9 Hypothyroidism, unspecified; D64.9 Anemia, unspecified
CPT/HCPCS: 36415; 80053; 80061; 81001; 82306; 84439; 84443; 85025

== ENCOUNTER 2025-03-07 13:42 | Outpatient (AMB) | payer OTHER, SELFPAY ==
--- NOTE | 2025-03-07 13:57 | MHC.PC.OV ---
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 Accompanied by: Self / Same As Patient Allergies No Known Allergies Allergy (Mild, Verified 03/07/25 14:28) N/A Medication List - Last Reconciled 03/07/25 by Joe Small MD albuterol sulfate 90 mcg/actuation 1 puff inhalation QID PRN cholecalciferol (vitamin D3) 50 mcg PO DAILY 90 days fenofibrate 160 mg PO DAILY 90 days levothyroxine (Levoxyl) 25 mcg PO DAILY 90 days nystatin (Nystop) 1 appl topical TID pravastatin 40 mg PO BEDTIME 90 days varenicline tartrate 0.5 mg PO DAILY 3 days varenicline tartrate 0.5 mg PO BID 3 days varenicline tartrate 1 mg PO BID 28 days Tobacco use date assessed: 03/07/25 Dental Screening Dental Screen Date: 03/07/25 Did you have a dental visit in the last 12 months?: No Did you have a dental problem in the last 6 months where you did not have access to dental care?: No Was dental information given to patient?: No HPI 3mth f/u HPI Details Patient comes in today for her follow up visit States that she's had increased cough/cold symptoms for over a week now Relates (+) mild sore throat but she denies any fever, headaches or dizziness States that her cough feels worse at night and she has been coughing up some whitish to yellowish phlegm at times No nausea/vomiting, no abdominal pain No change in bowel habits noted Adds that she has been experiencing recurrent symptoms of hot flashes lately States that she still has her menstrual periods but they have been occurring on and off lately She had her follow up labs done yesterday - to discuss her results [facility] Medical History (Updated 03/08/25 @ 06:20 by Joe Small MD) Upper respiratory tract infection Scalp cyst Colon cancer screening Morbid obesity with BMI of 40.0-44.9, adult Obesity (BMI 30-39.9) Acquired hypothyroidism Annual physical exam Cervical cancer screening Breast cancer screening Menopausal symptoms Vitamin D deficiency ASCUS with positive high risk HPV cervical Benign essential hypertension Hidradenitis Mixed hyperlipidemia Surgical History Hx of surgical procedure (01/16/25) History of removal of cyst (~08/11/23) History of removal of cyst (~2014) History of cholecystectomy History of tubal ligation (~1994) Family History Father Emphysema lung Diabetes Myocardial infarction Mother Hypertension TIA (transient ischemic attack) Maternal Uncle Colon cancer Bladder cancer Sister Medley syndrome Endometriosis Abdominal malignancy Brother Leukemia Social History Housing: Apartment Are you a primary emergency care attendant to a significant other at home: Yes (parent w/alzheimers) Do you presently have visiting nurse or other home services: No Alcohol intake: never Patient Tobacco Use Status: Current everyday Tobacco user Tobacco use type: Cigarette Cigarette Packs Per Day: 1 Cigarettes Per Day: 20.0 e-Cigarette/Vaping Use: Never Used Second Hand Smoke Exposure: Yes service: No Current occupational status: employed Cognitive needs: No Hearing needs: No Vision needs: No Female Reproductive History Menstrual Age of Menarche: 17 Questionnaire PHQ-9 Over the last 2 weeks, how often have you been bothered by any of the following problems? 1. Little interest or pleasure in doing things: not at all 2. Feeling down, depressed, or hopeless: not at all 3. Trouble falling or staying asleep, or sleeping too much: more than half the days 4. Feeling tired or having little energy: several days 5. Poor appetite or overeating: not at all 6. Feeling bad about yourself - or that you are a failure or have let yourself or your family down: not at all 7. Trouble concentrating on things, such as reading the newspaper or watching television: not at all 8. Moving or speaking so slowly that other people could have noticed. Or the opposite - being so fidgety or restless that you have been moving around a lot more than usual: not at all 9. Thoughts that you would be better off or of hurting yourself in some way: not at all Total score: 3 Depression Screening Interpretation: Positive Depression Screening Follow-up: Follow-up Visit Requested Depression Screening Done: Yes [id number] - PHQ-9 Billing: Yes Source: Developed by Drs. Eldon Harper, Vanna Ríos, Mikey Anderson and colleagues, with an educational pete from [employer]. Thrive Questionnaire Date Thrive assessed: 03/07/25 I am a: Patient What is your living situation today?: I have a steady place to live Within the past 12 months, did the food you bought not last and you didn't have the money to get more?: Never true Within the past 12 months, did you worry whether your food would run out before you got money to buy more?: Never true Do you have trouble paying for medicines?: No Do you have trouble getting transportation to medical appointments?: No Do you have trouble paying your heating and electricity bill?: No Do you have trouble taking care of your child, family member or friend?: No Do you have trouble with day-to-day activities such as bathing, preparing meals, shopping, managing finances, etc.?: No Are you currently unemployed and looking for a job?: No Are you interested in more education?: No Please select the resources that you would like help with: None Currently or been in a relationship where the following occur: No concerns reported THRIVE Score: 0 AUDIT C Alcohol Use Questionnaire (AUDIT-C) 1. How often do you have a drink containing alcohol?: Monthly or less 2. How many drinks containing alcohol do you have on a typical day when you are drinking?: 1 or 2 3. How often do you have six or more drinks on one occasion?: Never Total Score: 1 Score Reviewed/Action Taken: Yes FABIO-7 AMB Questionnaire FABIO-7 Date FABIO - 7 assessed: 03/07/25 Feeling nervous, anxious, or on edge: 3 = Nearly every day Not being able to stop or control worryin = More than half the days Worrying too much about different things: 3 = Nearly every day Trouble relaxin = Several days Being so restless that it is hard to sit still: 2 = More than half the days Becoming easily annoyed or irritable: 3 = Nearly every day Feeling afraid as if something awful might happen: 0 = Not at all Total FABIO-7 score (0-4 normal; 5-9 mild; 10-14 moderate; 15-21 severe): 14 Source: Developed by Drs. Eldon Harper, Vanna Ríos, Mikey Anderson and colleagues, with an educational pete from [employer]. Review of Systems Const Denies chills, Reports fatigue, Denies fever(s) and Denies headache(s) ENT Denies dysphagia, Denies dizziness, Denies otalgia, Denies headache(s), Reports nasal congestion, Denies neck pain, Denies odynophagia and Reports sore throat (mild) Card Denies chest pain, Denies rapid heart rate, Denies irregular heart rhythm, Denies palpitations and Denies dyspnea Resp Reports chest congestion, Reports cough (worse at night; coughs up some yellowish phlegm), Denies dyspnea and Denies wheezing GI Denies abdominal pain, Denies constipation, Denies dysphagia, Denies heartburn, Denies diarrhea, Denies nausea, Denies odynophagia and Denies vomiting Denies difficulty voiding, Denies nocturia, Denies dysuria and Denies urinary urgency Musc Denies back pain, Denies arthralgias and Denies neck pain Skin/Breast Denies rash Neuro Denies dizziness, Denies headache(s) and Denies paresthesias Psych Denies anxiety and Denies depression Endo Reports fatigue and Denies palpitations Darrin/Lymph Denies easy bruising Aller/Immun Denies wheezing Physical exam (Primary Care) Vital Signs: Last Vital Signs Pulse 77 03/07/25 13:58 BP 112/84 03/07/25 13:58 Pulse Ox 97 03/07/25 13:58 Oxygen Delivery Method Room Air 03/07/25 13:58 BMI result Body Mass Index 42.5 Tobacco/Smoking Status: Tobacco use Status Tobacco use date assessed 03/07/25 03/07/25 14:09 Patient Tobacco Use Status Current everyday Tobacco 03/07/25 14:09 Tobacco use type Cigarette 03/07/25 14:09 e-Cigarette/Vaping Use Never Used 03/07/25 14:09 PHQ-9: PHQ-9 Score PHQ-9: Total score 3 03/07/25 14:28 Depression Screening Interpretation: Positive Depression Screening Follow-up: Follow-up Visit Requested Thrive Assessment: Date of Thrive Assessment Date Thrive assessed 03/07/25 03/07/25 14:09 Currently or been in a relationship where the following occur: No concerns reported Const General: no acute distress and alert HENMT Ears: TM's normal bilaterally and EAC's normal Throat: Yes tonsils normal (no TP congestion) and Yes posterior oropharynx abnormal (mild erythema of the posterior pharynx) Neck Neck: Yes supple and No lymphadenopathy Thyroid: Thyroid normal Resp Auscultation: no crackles, no rales, rhonchi (occasional) throughout and no wheezes Cardio Rate: regular rate Rhythm: regular rhythm Heart sounds: no murmurs GI Palpation (GI): Soft to palpation and nontender Auscultation: normal bowel sounds General: Yes no CVA tenderness Back/Spine/Pelvis Back: no CVA tenderness Thoracic/Lumbar Spine: No lumbar spinal tenderness Skin Rashes: no rashes Extrem General: Yes no clubbing, cyanosis or edema Results Reviewed Results Reviewed: Laboratory Tests 08/07/23 11/08/24 03/06/25 08:49 09:09 14:50 WBC Hgb Hct Plt Count Sodium Potassium Creatinine Estimated GFR Fasting Glucose Calcium AST ALT LDL Cholesterol, Calc 146 H TNP Triglycerides 747 H Cholesterol 305 H HDL Cholesterol 39 L 25-OH Vitamin D Total TSH 9.24 H Free T4 0.78 Urine pH 6.0 Ur Specific [place] 1.020 Urine Protein Negative Urine Glucose (UA) Negative Urine Blood Small (1+) H Urine Nitrite Negative Ur Leukocyte Esterase Negative 03/06/25 14:55 WBC 8.3 Hgb 13.3 Hct 40.9 Plt Count 297 Sodium 139 Potassium 4.1 Creatinine 0.88 Estimated GFR > 60 Fasting Glucose 88 Calcium 9.6 AST 31 ALT 26 LDL Cholesterol, Calc 129 H Triglycerides 347 H Cholesterol 240 H HDL Cholesterol 42 25-OH Vitamin D Total 39.3 TSH 5.89 H Free T4 0.97 Urine pH Ur Specific [place] Urine Protein Urine Glucose (UA) Urine Blood Urine Nitrite Ur Leukocyte Esterase Coding Level of Care Code Est Pt Level 4 (53819) Diagnoses Benign essential hypertension I10 Mixed hyperlipidemia E78.2 Acquired hypothyroidism E03.9 Vitamin D deficiency E55.9 Upper respiratory tract infection, unspecified type J06.9 URI type: unspecified URI Insomnia, unspecified type G47.00 Insomnia type: unspecified Smoker F17.200 Morbid obesity with BMI of 40.0-44.9, adult E66.01; Z68.41 Additional Codes PHQ-9 - 21855 - PHQ-9 Billing: Yes ([id number]) Assessment & Plan Assessment & Plan (1) Benign essential hypertension: Code(s): I10 - Essential (primary) hypertension Category: Medical Plan: Reinforced low sodium diet - goal is systolic BP of 120 mm or less She used to take Lisinopril 10 mg QD for high blood pressure but stopped taking this about 2 to 3 years ago Patient states that her blood pressure has been doing well so far since she stopped taking her BP med (2) Mixed hyperlipidemia: Code(s): E78.2 - Mixed hyperlipidemia Category: Medical Plan: Results of her labs done yesterday reviewed and discussed with patient - her cholesterol levels, especially her triglyceride level, have improved significantly by around half of her previous numbers a few months ago Reinforced low-cholesterol diet Continue Pravastatin 40 mg QD and Fenofibrate 160 mg QD Will have patient recheck her labs and fasting lipids in 3 months for follow up (3) Acquired hypothyroidism: Code(s): E03.9 - Hypothyroidism, unspecified Category: Medical Plan: Her TFTs have improved from previous but are still not at goal Will increase her Levothyroxine now from 25 mcg to 50 mcg QD Will recheck her TFTs in 3 months for follow up (4) Vitamin D deficiency: Code(s): E55.9 - Vitamin D deficiency, unspecified Category: Medical Plan: Continue Vitamin D3 2000 units QD (5) Upper respiratory tract infection: Code(s): J06.9 - Acute upper respiratory infection, unspecified Category: Medical Qualifiers: URI type: unspecified URI Qualified Code(s): J06.9 - Acute upper respiratory infection, unspecified Plan: Will start patient on Azithromycin QD x 5 days (6) Insomnia: Code(s): G47.00 - Insomnia, unspecified Category: Medical Qualifiers: Insomnia type: unspecified Qualified Code(s): G47.00 - Insomnia, unspecified Plan: Sleep hygiene reinforced (7) Smoker: Code(s): F17.200 - Nicotine dependence, unspecified, uncomplicated Category: Social Hx Plan: Patient is counseled again on complete smoking cessation Per her request, she was previously started again on varenicline to help her quit smoking (8) Morbid obesity with BMI of 40.0-44.9, adult: Code(s): E66.01 - Morbid (severe) obesity due to excess calories; Z68.41 - Body mass index [BMI] 40.0-44.9, adult Category: Medical Plan: Reinforced diet/exercise as tolerated/lose weight Plan Follow up in 3 months Orders: Orders Free T4 (Free Thyroxine) 3 Months E03.9 - Hypothyroidism, unspecified Thyroid Stimulating Hormone 3 Months E03.9 - Hypothyroidism, unspecified Lipid Panel 3 Months E78.00 - Pure hypercholesterolemia, unspecified Comprehensive [place]. Panel Fast 3 Months E78.00 - Pure hypercholesterolemia, unspecified Medications: New azithromycin take 500 mg today (day 1), then 250 mg for 4 days (days 2-5) PO 6 tabs 0RF Changed From levothyroxine (Levoxyl) Take on an empty stomach first thing in the morning with a glass of water; DO NOT TAKE OR DRINK ANYTHING ELSE afterwards for the next 30 minutes 25 mcg PO DAILY 90 tabs 1RF 90 days To levothyroxine Take on an empty stomach first thing in the morning with a glass of water; DO NOT TAKE OR DRINK ANYTHING ELSE afterwards for the next 30 minutes 50 mcg PO DAILY 90 tabs 1RF 90 days
[2025-03-07 13:58] VITALS: BP 112/84; PULSE 77; O2SAT 97; BMI 42.5
== END 2025-03-07 14:40 | disposition home or self-care (01) ==
LOC: HO.HMCH 13:43
PROVIDERS: PCP Internal Medicine; Visit Provider Internal Medicine
DX: I10 Essential (primary) hypertension (principal); E78.2 Mixed hyperlipidemia; E03.9 Hypothyroidism, unspecified; E55.9 Vitamin D deficiency, unspecified; J06.9 Acute upper respiratory infection, unspecified; G47.00 Insomnia, unspecified; F17.200 Nicotine dependence, unspecified, uncomplicated; E66.01 Morbid (severe) obesity due to excess calories; Z68.41 Body mass index [BMI] 40.0-44.9, adult

== ENCOUNTER → 2025-03-07 13:42 | Outpatient (BNVA) | payer OTHER, SELFPAY | PROVIDERS: PCP Internal Medicine; Visit Provider Internal Medicine | DX: I10 Essential (primary) hypertension (principal); J06.9 Acute upper respiratory infection, unspecified; E78.2 Mixed hyperlipidemia; E03.9 Hypothyroidism, unspecified; E55.9 Vitamin D deficiency, unspecified; G47.00 Insomnia, unspecified; F17.210 Nicotine dependence, cigarettes, uncomplicated; E66.01 Morbid (severe) obesity due to excess calories; Z68.41 Body mass index [BMI] 40.0-44.9, adult | CPT/HCPCS: 96127; 99212 ==